=== PATIENT | male | born 1965 | race Caucasian/White ===

== ENCOUNTER 2018-06-25 11:51 | Emergency (ER) | payer BC, SELFPAY ==
[2018-06-25 12:01] VITALS: BP 159/92; PULSE 82; RESP 18; TEMP 36.7
--- NOTE | 2018-06-25 12:12 | W.ED.GENAD ---
Discharge Plan Discharge Details Chief Complaint: EyeProblem Primary Care Provider: Alberto Ruffin ED Provider: Sergio Alvarez Medical Decision Making 52-year-old male presents with 1 day of left eye injection and purulent crusting discharge. He is otherwise well-appearing and does have some medical comorbidities. It is consistent with acute bacterial conjunctivitis I will treat with a course of erythromycin ointment. Discussed with patient home management as well as return precautions prior to discharge HPI General Mode of arrival: ambulatory. Date/Time Provider Initiated Documentation: 06/25/18 12:06. Limitations to Documentation: no limitations. Information obtained by: patient. History of Present Illness 52 year old M presents to the emergency department with the chief complaint of Left eye infection, described as moderate, and is localized to the eyes and left. and it has been constant. No relieving factors improve symptom(s), No exacerbating factors reported . Patient notes no other symptoms.. HPI Narrative: Left eye crusting and discharge overnight after visiting local snf facility. No pain with movement of the eye. Minimal change to vision. No fever or headache General Stated Complaint: EyeProblem GETACHEW: 3 Review of Systems Review of Systems For systems reviewed and otherwise neg. PFSH Social History Smoking/Tobacco Use Status: Never Exam Narrative Exam Narrative: GEN: awake, alert, oriented 3. Pleasant, well groomed, interactive. HEAD: Normocephalic, atraumatic ENT: Mucous membranes moist, oropharynx unremarkable, External ear exam unremarkable EYES: PERRL, EOMI, left conjunctival injection, question newly pointing stye with surrounding mild swelling of the left upper eyelid. Visual christopher intact to confrontation NECK: Full ROM, no ELLIE, no menigismus CHEST/RESP: Nontender, clear to auscultation bilateral, no wheeze/rhonchi/rales CARDIOVASCULAR: RRR, no murmur, rub david. 2+ Rad pulse bilateral Neuro: Grossly normal neurologic exam, conversant, interactive. Psych: Speech fluent, thoughts congruent, affect normal Course Vital Signs Temperature 36.7 C 06/25/18 12:01 Pulse 82 06/25/18 12:01 Respiratory Rate 18 06/25/18 12:01 Blood Pressure 159/92 H 06/25/18 12:01 Temperature 36.7 C 06/25/18 12:01 Temperature Source Skin 06/25/18 12:01 Pulse 82 06/25/18 12:01 Respiratory Rate 18 06/25/18 12:01 Respiratory Effort 06/25/18 12:04 Blood Pressure 159/92 H 06/25/18 12:01 Blood Pressure Position Sitting 06/25/18 12:01 Oxygen Delivery Method Room Air 06/25/18 12:01 Oxygen Flow Rate 0 06/25/18 12:01
--- NOTE | 2018-06-25 12:16 | ED.GENADUL_ITS ---
Discharge Plan Discharge Details Chief Complaint: EyeProblem Primary Care Provider: Alberto Ruffin ED Provider: Sergio Alvarez Medical Decision Making 52-year-old male presents with 1 day of left eye injection and purulent crusting discharge. He is otherwise well-appearing and does have some medical comorbidities. It is consistent with acute bacterial conjunctivitis I will treat with a course of erythromycin ointment. Discussed with patient home management as well as return precautions prior to discharge HPI General Mode of arrival: ambulatory . Date/Time Provider Initiated Documentation: 06/25/18 12:06 . Limitations to Documentation: no limitations . Information obtained by: patient . History of Present Illness 52 year old M presents to the emergency department with the chief complaint of Left eye infection, described as moderate, and is localized to the eyes and left. and it has been constant. No relieving factors improve symptom(s), No exacerbating factors reported . Patient notes no other symptoms.. HPI Narrative: Left eye crusting and discharge overnight after visiting local [facility] facility. No pain with movement of the eye. Minimal change to vision. No fever or headache General Stated Complaint: EyeProblem GETACHEW: 3 Review of Systems Review of Systems For systems reviewed and otherwise neg. PFSH Social History Smoking/Tobacco Use Status: Never Exam Narrative Exam Narrative: GEN: awake, alert, oriented 3. Pleasant, well groomed, interactive. HEAD: Normocephalic, atraumatic ENT: Mucous membranes moist, oropharynx unremarkable, External ear exam unremarkable EYES: PERRL, EOMI, left conjunctival injection, question newly pointing stye with surrounding mild swelling of the left upper eyelid. Visual christopher intact to confrontation NECK: Full ROM, no ELLIE, no menigismus CHEST/RESP: Nontender, clear to auscultation bilateral, no wheeze/rhonchi/rales CARDIOVASCULAR: RRR, no murmur, rub david. 2+ Rad pulse bilateral Neuro: Grossly normal neurologic exam, conversant, interactive. Psych: Speech fluent, thoughts congruent, affect normal Course Vital Signs Temperature 36.7 C 06/25/18 12:01 Pulse 82 06/25/18 12:01 Respiratory Rate 18 06/25/18 12:01 Blood Pressure 159/92 H 06/25/18 12:01 Temperature 36.7 C 06/25/18 12:01 Temperature Source Skin 06/25/18 12:01 Pulse 82 06/25/18 12:01 Respiratory Rate 18 06/25/18 12:01 Respiratory Effort 06/25/18 12:04 Blood Pressure 159/92 H 06/25/18 12:01 Blood Pressure Position Sitting 06/25/18 12:01 Oxygen Delivery Method Room Air 06/25/18 12:01 Oxygen Flow Rate 0 06/25/18 12:01
[2018-06-25] MEDS: Erythromycin Ophth Oint 3.5 GM TUBE OS (12:33)
[2018-06-25 12:35] VITALS: BP 159/92; PULSE 82; RESP 18; TEMP 36.7; O2SAT 98
== END 2018-06-25 12:35 | disposition designated cancer center or children's hospital (05) ==
PROVIDERS: Emergency Provider Emergency Medicine
DX: H10.32 Unspecified acute conjunctivitis, left eye (principal); E11.9 Type 2 diabetes mellitus without complications
CPT/HCPCS: 99283

== ENCOUNTER 2018-10-24 11:10 | Outpatient (CLI) | payer BC, SELFPAY ==
[2018-10-24 12:16] LABS: ALT 80 U/L (12-78); AST 37 U/L (15-37); Albumin 3.8 g/dL (3.4-5.0); Alkaline Phosphatase 125 U/L (46-116); BUN 13 mg/dL (7-18); Bilirubin, Total 0.9 mg/dL (0.2-1.0); CREATININE 0.84 mg/dL (0.70-1.30); Calcium 9.2 mg/dL (8.5-10.1); Chloride 100 mmol/L (98-107); Cholesterol 204 mg/dL (50-200); Glucose 288 mg/dL (70-100); HDL Cholesterol 51 mg/dL (40-60); LDL CHOLESTEROL 122 mg/dL (<100); Potassium 4.4 mmol/L (3.5-5.1); Sodium 136 mmol/L (136-145); Total Protein 7.5 g/dL (6.4-8.2); Triglyceride 217 mg/dL (30-150)
== END 2018-10-24 11:30 ==
PROVIDERS: PCP Family Medicine; Visit Provider Family Medicine
DX: E11.9 Type 2 diabetes mellitus without complications (principal)
CPT/HCPCS: 36415; 80053; 80061; 83721

== ENCOUNTER 2019-05-22 14:32 | Outpatient (REF) | payer BC, SELFPAY ==
[2019-05-22 19:35] LABS: Microalb ug/mg Crea 286.5 ug/mg Cr
== END 2019-05-22 14:52 ==
LOC: LBN 14:32
PROVIDERS: PCP Family Medicine; Visit Provider Family Medicine
DX: E11.9 Type 2 diabetes mellitus without complications (principal)
CPT/HCPCS: 82043; 82570

== ENCOUNTER 2019-06-05 11:50 | Day surgery (SDC) | payer BC, SELFPAY ==
[2019-06-05 12:13] VITALS: BP 166/98; PULSE 84; RESP 18; TEMP 36.6; O2SAT 96
--- NOTE | 2019-06-05 14:10 | SKI_PTH ---
PATIENT: Brian Walker LOC: [facility] U#:[id number] AGE/SX: 53/M ROOM: RE06/05/[address]: Christianne Martinez : 1965 BED: DIS: 06/05/2019 SPEC #: [id number] RECD: 06/05/19 17:48 STATUS: CARLOS LEYVA #: [id number] LAURI: 06/05/19 14:[address]: Christianne Martinez DEPT: Surgical Specimen RECD BY: Ines Menjivar ENTERED: 06/05/19 17:49 SP TYPE: ROSIBEL VARELA DR: Jordan Vega DO Tissues: 1 - SKIN CYST/TAG/DEBRIDEMENT 2 - SKIN CYST/TAG/DEBRIDEMENT 3 - SKIN CYST/TAG/DEBRIDEMENT Procedures: SKIN BIOPSY LEVEL 3 Comments: [id number]
--- NOTE | 2019-06-05 14:57 | W.PM.DSUDISC ---
Discharge Plan Disposition Patient Disposition: HOME Condition: Good Discharge Details Reason For Visit: SKIN LESION / CYSTS Attending Provider: Christianne Martinez Primary Care Provider: Jordan Vega [place] Meds and New Rx's Prescriptions: New tramadol 50 mg tablet 50 mg PO Q6H PRN (Reason: pain) Qty: 7 RF: 0 ibuprofen 600 mg tablet 600 mg PO Q6H PRN (Reason: pain) Qty: 60 RF: 1 Continued glimepiride 2 mg tablet 2 mg PO DAILY Qty: 90 RF: 3 atorvastatin 40 mg tablet 40 mg PO QHS Qty: 90 RF: 3 lisinopril 5 mg tablet 5 mg PO DAILY Qty: 90 RF: 3 doxycycline hyclate 20 mg tablet 20 mg PO BID Qty: 180 RF: 3 Invokana 300 mg tablet 300 mg PO DAILY Qty: 30 RF: 3 Discharge Orders Discharge Orders: Discharge Order (Routine); Ordered 06/05/19 Ordered By: Christianne Martinez DS: Diagnosis Discharge Diagnosis (1) Epidermal cyst: Status: Acute
--- NOTE | 2019-06-05 15:11 | W.PM.DSUDISC ---
Discharge Plan Disposition Patient Disposition: HOME Condition: Good Discharge Details Reason For Visit: SKIN LESION / CYSTS Attending Provider: Christianne Martinez Primary Care Provider: Jordan Vega Home Meds and New Rx's Prescriptions: New tramadol 50 mg tablet 50 mg PO Q6H PRN (Reason: pain) Qty: 7 RF: 0 ibuprofen 600 mg tablet 600 mg PO Q6H PRN (Reason: pain) Qty: 60 RF: 1 Continued glimepiride 2 mg tablet 2 mg PO DAILY Qty: 90 RF: 3 atorvastatin 40 mg tablet 40 mg PO QHS Qty: 90 RF: 3 lisinopril 5 mg tablet 5 mg PO DAILY Qty: 90 RF: 3 doxycycline hyclate 20 mg tablet 20 mg PO BID Qty: 180 RF: 3 Invokana 300 mg tablet 300 mg PO DAILY Qty: 30 RF: 3 Discharge Instructions Additional Instructions: Caring for Your Incision You?ll need to help care for your incision after surgery and certain medical procedures. To close an incision, your healthcare provider used stitches (sutures), special strips of surgical tape called Steri-Strips, surgical messi, or surgical skin glue. Follow the tips on this sheet to help stop bleeding, speed healing, and prevent infection of your incision. Pain Control Use ice! Ice keeps the swelling down and swelling is what causes pain. Never apply ice directly to the skin. Wrap it in a towel or cloth. Apply ice 20 minutes on and 20 minutes off for pain control. Use as needed. Take tylenol 325 mg by mouth with food every 4 hours as needed for pain. Or ibuprofen 400 mg by mouth with food every 4 hours as needed for pain. Do not take tylenol if you have a history of heavy drinking , hepatits C or liver problems. Do not take ibuprofen if you have a history of stomach ulcers/problems, bleeding problem or kidney issues. Types of incision closures ? Surgical stitches (sutures) are placed by sewing the edges of an incision together with surgical thread. Sutures are either absorbable or non-absorbable. Absorbable sutures break down in the body over time. Non-absorbable sutures need to be removed. ? Home care ? Always wash your hands before touching your incision. ? Keep the incision clean, dry, and out of water, keep the incision out of water. ? Do not to pick at the scabs. Scabs help protect the wound. ? You can take a shower in 24 hours and wash the incision with soap and water. Pat dry/don?t scrub. It?s OK to wash around the incision. But don?t spray water directly on it. ? Pat stitches dry if they get wet. Don't rub. ? Check the incision site daily for pain, redness, drainage, swelling, or separation of the incision edges. ? If there is a bandage (dressing) over the incision, change this every 24 hours as instructed by your provider. Using clean hands change the dressing as directed by your healthcare provider. Always wash your hands before changing your dressing. ? Make sure any clothing that touches the incision is loose-fitting. This will prevent rubbing. If the incision is on the head, keep your child from wearing caps or other head coverings. These may rub against the incision. ? Try to avoid from rough play, contact sports, or physical activities for two weeks. This can put you at risk of opening the incision. ? Make sure you avoid doing things that could cause dirt or sweat to get in or on the incision. As your incision heals, the skin may appear pink or red. It may also feel slightly bumpy or raised. This is called a healing ridge. Over time, the color should fade and the raised skin will become less noticeable. Care for specific closures : ? Sutures or messi. Once you no longer need to keep these dry, clean the incision or wound daily, generally after the first 24 hours. First remove the bandage using clean hands. Then wash the area gently with soap and warm water. Use a wet cotton swab to loosen and remove any blood or crust that forms. After cleaning, put a thin layer of antibiotic ointment on. Then put on a new bandage. Follow-up care [place] or sutures generally need to be removed in 7-10 days. 5 days for the face. Be sure to return for suture or staple removal as directed. If dissolving stitches were used in your mouth, these will not need to be removed. They should fall out or dissolve on their own. If tape closures were used, remove them yourself when your healthcare provider tells you to if they have not fallen off on their own. When to seek medical care Call your healthcare provider right away if you have any of these: ? More pain, redness, swelling, bleeding, or foul-smelling discharge around the incision area ? Fever of 101?F (38.3?C) or higher, or as directed by your child's healthcare provider ? Shaking chills ? Vomiting or nausea that doesn?t go away ? Numbness, coldness, or tingling around the incision area, or changes in skin color ? Opening of the sutures or wound Stitches or messi come apart or fall out or surgical tape falls off before 7 days, or as directed by your healthcare provider Activity:: no strenuous activity x 2 wks Remove Dressings/Wound Care:: 24 hours Shower/Bathe:: 24 hours Diet:: As Tolerated Discharge Orders Discharge Orders: Discharge Order (Routine); Ordered 06/05/19 Ordered By: Christianne Martinez DS: Diagnosis Discharge Diagnosis (1) Epidermal cyst: Status: Acute
--- NOTE | 2019-06-05 15:16 | W.PM.OP ---
Date of service: 06/05/19 Time of Service: 15:16 Operative Note DATE OF PROCEDURE: 06/05/19 PRE-OP DIAGNOSIS: sebaceous cyst POST-OP DIAGNOSIS: same PROCEDURE: excision of cysts x 3 face 2x2cm elbow 2x2 chest 2x2cm SURGEON: Christianne Martinez ANESTHESIA: local ESTIMATED BLOOD LOSS: 5 PATHOLOGY: other COMPLICATIONS: None Patient was transported to: same day Procedure Description: dictated
[2019-06-05] MEDS: traMADol 50 MG TAB PO (15:31)
--- NOTE | 2019-06-08 16:49 | ROE_ITS ---
DATE OF PROCEDURE: June 05, 2019 PREOPERATIVE DIAGNOSIS: sebaceous cysts x3 POSTOPERATIVE DIAGNOSIS: Same. PROCEDURE: Excision thereof. SURGEON: Christianne Martinez D.O. ANESTHESIA: Local. ESTIMATED BLOOD LOSS: < 5 cc's in total. CONDITION: Patient tolerated the procedure well without complication. INDICATION FOR PROCEDURE: Mr. Walker is a 53-year-old male seen at the request of his primary care physician and is here today for cyst removal. He has three cysts that he wants removed today - one on his face at the lateral angle of the right eye that is 2x2 cm; one on his left elbow that is 2x2 inches; and one on his mid chest that is 2x2 cm- and this lesion is recurrent. None of these are actively infected. He has had a history of sebaceous cysts in the past. None of these are suspicious for malignancy. They are marked in preop and informed consent was obtained explaining risks and benefits of the procedure, including but not limited to bleeding, infection, scarring and recurrence. I did offer him the option of going to see Plastic Surgery for having the one removed by the eye, but he declines at this time. PROCEDURE: The patient was brought back to the procedure room and placed in the supine position. A time-out is performed. The one near the eye is attended to first and is prepped and draped in the usual sterile fashion using a Chlorhexidine scrub solution, being careful not to get the solution in his eye. The area is infiltrated with 5 cc's of 1% Lidocaine plain. A skin incision is made with a #15 blade to match the contours of his skin. The lesion is dissected out completely and it does appear to be a sebaceous cyst. It does have a thick rind around it. All the capsule is removed. The wound is then irrigated and is closed with two stitches of #4-0 Nylon. The one on the elbow was then attended to next. It is infiltrated with 30 cc's lidocaine. . An inch and a half incision is then made over the elbow. This is a 2 to 3 inch lesion and this is again dissected out completely, including capsule. It is irrigated and ensured that all the capsule is removed. It is closed in two layers, the first with #3-0 Vicryl and the second layer with #3-0 Prolene. Compression dressing is applied. The lesion on the chest is attended to next. He has had this in the past with infection; it is not currently infected. It is prepped and draped with Chlorhexidine. It is infiltrated with 10 cc's of Lidocaine. The old scar tissue and the cyst are excised in total and it is closed with three stitches of #3-0 Prolene and sterile dressings are applied. The patient tolerated the procedure well without complication and transferred to recovery room in stable condition and will be discharged home. He is given instructions on wound care, activity and warning signs and prescription for pain medication. Please see his discharge instructions.
== END 2019-06-05 15:37 | disposition home or self-care (01) ==
PROVIDERS: PCP Family Medicine; Visit Provider Surgery
PROC: (CPT 11442; principal; 2019-06-05 13:00)
DX: L72.8 Other follicular cysts of the skin and subcutaneous tissue (principal)
CPT/HCPCS: 11442; 11402 ×2; 12031; 88304

== ENCOUNTER 2019-07-18 23:05 | Emergency (ER) | payer BC, SELFPAY ==
[2019-07-18 23:12] VITALS: BP 151/87; PULSE 94; RESP 20; TEMP 36.6; O2SAT 97
[2019-07-18] MEDS: Budesonide/Formoterol 160/4.5 6 GM 60 PUFF INH IH (23:14)
--- NOTE | 2019-07-18 23:17 | DI.RAD_ITS ---
EXAM: XR CHEST 2V PA LATERAL XR CHEST 2V PA LATERAL CLINICAL HISTORY: cough, r/o pneumonia cough, r/o pneumonia TECHNIQUE: 2D digital imaging was performed. COMPARISON: No exams were available for comparison FINDINGS: The heart is not enlarged. The lungs are clear and well expanded. No pleural effusion seen. Mediastin al contours appear intact. IMPRESSION: Normal chest
--- NOTE | 2019-07-18 23:19 | ED.GENADUL_ITS ---
Discharge Plan Disposition Patient Disposition: HOME Condition: Good Discharge Details Chief Complaint: SOB Clinical Impression: Bronchitis Primary Care Provider: Jordan Vega ED Provider: Tawanda Bowman Home Meds and New Rx's Prescriptions: New azithromycin 250 mg tablet See Rx Instructions .ROUTE .COMPLEX Qty: 6 RF: 0 prednisone 50 MG tablet 50 mg PO DAILY Qty: 5 RF: 0 No Action glimepiride 2 mg tablet 2 mg PO DAILY Qty: 90 RF: 3 atorvastatin 40 mg tablet 40 mg PO QHS Qty: 90 RF: 3 lisinopril 5 mg tablet 5 mg PO DAILY Qty: 90 RF: 3 doxycycline hyclate 20 mg tablet 20 mg PO BID Qty: 180 RF: 3 ibuprofen 600 mg tablet 600 mg PO Q6H PRN (Reason: pain) Qty: 60 RF: 1 Farxiga 10 mg Tablet 10 mg PO DAILY RF: 0 Discharge Instructions Instructions: Acute Bronchitis (ED) Additional Instructions: At this time your x-rays negative for pneumonia. Your signs are concerning for bronchitis. Please take the Symbicort inhaler, 2 puffs every 12 hours as directed. I suspect that you have a notable improvement with this. However if you do not have any significant improvement over the next 2 to 3 days, I would then recommend start taking the oral steroid and the antibiotic. When you are doing this make sure to monitor your sugars very closely. If you notice any worsening of your symptoms, or any new symptoms such as vomiting, diarrhea, fever, chills, shortness of breath, chest pain, numbness, weakness, or fainting , please return immediately to the emergency department for reevaluation. Please follow up with your primary care provider as soon as possible for reassessment and reevaluation. As always, it was a pleasure participating in your medical care today. Referrals: Jordan Vega DO [Primary Care Provider] - Medical Decision Making This is a 53-year-old male with a past medical history of rosacea on chronic 20 mg of doxycycline daily, high cholesterol, type 2 diabetes, hypertension, who presents today for evaluation of cough for the last week. It is productive white sputum. No hemoptysis. He denies any weight gain, in fact he does admit to mild weight loss. He denies any fever or chills. He denies any concerning red flags for chest pain, chest tightness, chest heaviness. He denies any recent long trips, travel or surgery. He denies any PE red flags. Physical exam demonstrates no significant concerning lung sounds, no other significant abnormalities. Patient is on lisinopril and has been on this chronically. I feel it unlikely that this is the causative etiology of his symptoms. Feel he would likely suffering from current bronchitis. We will get an x-ray to rule out pneumonia. We will give 2 breathing treatments, and reassess. His sugars have been running high for the last few days, and so we will hold off on steroids at this time. 12:39 AM Chest x-ray results are negative for acute process peaked. EKG unremarkable. There is an old Q wave in lead III, however EKG from 2007 demonstrates identical findings. Patient feels much better after breathing treatments. With no clinical evidence of pneumonia I do not feel that antibiotics are indicated at this time. We will give Symbicort with a spacer to go home with. We will give him a prescription for steroids and antibiotics but my recommendation to the patient is that he holds off for the next 48 to 72 hours. If he improves with the inhaler at home, I feel that this will be sufficient and he will not need the additional medications. Additionally am hesitant about steroids secondary to his poorly controlled diabetes. With no signs of respiratory distress or compromise, I feel he can be safely discharged home. Diagnosis bronchitis. I have extensively reviewed the treatment plan and discharge instructions with the patient. I have addressed all patient concerns at this time. The patient was made aware of what symptoms to monitor for that would warrant a return to the emergency department. Discussed the plan with the patient, they demonstrate verbal understanding and agreement with our assessment and plan at this time. EKG 23: 25 Rate 95, intervals normal, sinus rhythm, Q wave in lead III, no significant ST elevations or depressions, no significant T wave inversions. Review of prior EKG from demonstrates equivalent findings. FINDINGS: Lungs: Unremarkable. No consolidation. Pleural space: Unremarkable. No pleural effusion. No pneumothorax. Heart/Mediastinum: Unremarkable. No cardiomegaly. Bones/joints: Unremarkable. IMPRESSION: No acute findings. Thank you for allowing us to participate in the care of your patient. Dictated and Authenticated by: Jordan Boone DO 07/19/2019 12:03 AM Eastern Time ([place] & [place]) HPI General Date/Time Provider Initiated Documentation: 07/18/19 23:09 . HPI Narrative: This is a 53-year-old male with a past medical history of rosacea on chronic doxycycline, diabetes, chronic hepatic steatosis, hypertension, who presents today for evaluation of cough. States that for the last week he has had a mild cough, he has productive white sputum, over the last few days his cough is continued and slightly worsened. On some episodes his cough is so severe that he gets slightly lightheaded. He denies any syncope. He denies any chest pain, chest heaviness, chest tightness. He has not taken any additional medications for this. He did try to use an inhaler at home once from a family member but was unable to. He denies any fever or chills. He denies any nausea vomiting or diarrhea. He has no other complaints at this time. He does not smoke. He denies any history of cardiac disease. Related Data Home Medications Medication Instructions Recorded Confirmed doxycycline hyclate 20 mg tablet 20 mg PO BID #180 tab 10/23/18 07/18/19 atorvastatin 40 mg tablet 40 mg PO QHS #90 tab 12/12/18 07/18/19 lisinopril 5 mg tablet 5 mg PO DAILY #90 tab 12/12/18 07/18/19 glimepiride 2 mg tablet 2 mg PO DAILY #90 tab 05/22/19 07/18/19 ibuprofen 600 mg PO Q6H PRN #60 tab 06/05/19 07/18/19 dapagliflozin [Farxiga] 10 mg PO DAILY 07/18/19 07/18/19 azithromycin See Rx Instructions .ROUTE 07/19/19 .COMPLEX #6 tab prednisone 50 mg PO DAILY #5 tab 07/19/19 Previous Rx's Medication Instructions Recorded doxycycline hyclate 20 mg tablet 20 mg PO BID #180 tab 10/23/18 atorvastatin 40 mg tablet 40 mg PO QHS #90 tab 12/12/18 lisinopril 5 mg tablet 5 mg PO DAILY #90 tab 12/12/18 glimepiride 2 mg tablet 2 mg PO DAILY #90 tab 05/22/19 ibuprofen 600 mg PO Q6H PRN #60 tab 06/05/19 azithromycin See Rx Instructions .ROUTE 07/19/19 .COMPLEX #6 tab prednisone 50 mg PO DAILY #5 tab 07/19/19 Allergies Allergy/AdvReac Type Severity Reaction Status Date / Time Penicillins Allergy Severe anaphylaxis Verified 06/17/19 09:09 General Stated Complaint: SOB GETACHEW: 3 Review of Systems Review of Systems ROS Unobtainable: All systems reviewed & are unremarkable except as noted in HPI and below PFSH Social History Smoking/Tobacco Use Status: Never Alcohol Intake: former Drug use: Never Substance use type: does not use Adopted: No Household members: spouse 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 3.ENT: Atraumatic external nose and ears. Moist MM. Neck: Symmetric, trachea midline, No thyromegaly. Posterior oropharynx demonstrates no tonsillar exudate or tonsillar enlargement. No evidence of airway compromise. 4.CVS: +S1/S2, No murmurs or gallops. Peripheral pulses 2+ and equal in all extremities. Brisk capillary refill in all extremities. 5.RESP: Unlabored respiratory effort. Lungs are clear to auscultation, no significant wheezes rales or rhonchi. Minimally reduced breath sounds throughout though. 6.GI: Soft, Nontender/Nondistended, No hepatosplenomegaly. No guarding or rebound. 7.MSK: Normocephalic/Atraumatic, Extremities w/o deformity or ttp No cyanosis or clubbing, Normal movement of all extremities. No swelling or pitting edema. No calf tenderness. 8.Skin: Warm, Dry. No rashes or lesions. 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 Sensation grossly intact, no focal neurologic deficits. 10.Psych: (AAO) x3. Appropriate mood and affect Course Vital Signs Vital signs: Vital Signs Temperature 36.6 C 07/18/19 23:12 Pulse 94 H 07/18/19 23:12 Respiratory Rate 20 07/18/19 23:12 Blood Pressure 151/87 H 07/18/19 23:12 Pulse Oximetry 97 07/18/19 23:12 Temperature 36.6 C 07/18/19 23:12 Temperature Source Tympanic 07/18/19 23:12 Pulse 94 H 07/18/19 23:12 Respiratory Rate 20 07/18/19 23:12 Blood Pressure 151/87 H 07/18/19 23:12 Pulse Oximetry 97 07/18/19 23:12 Oxygen Delivery Method Room Air 07/18/19 23:12 Oxygen Flow Rate 0 07/18/19 23:12
[2019-07-18 23:30] VITALS: RESP 20
[2019-07-18] MEDS: Albuterol/Ipratropium 3 ML UPD VIAL 6 ML UPD (23:34)
--- NOTE | 2019-07-19 00:03 | DI.VRAD_ITS ---
PROCEDURE INFORMATION: Exam: XR Chest, 2 Views Exam date and time: 07/18/2019 11:51 PM Clinical history: 53 years old, male; Cough and shortness of breath; Patient HX: Cough; Per PT: Been going on for about week; Additional info: R/O pneumonia TECHNIQUE: Imaging protocol: XR of the chest Views: 2 views. COMPARISON: No relevant prior studies available. FINDINGS: Lungs: Unremarkable. No consolidation. Pleural space: Unremarkable. No pleural effusion. No pneumothorax. Heart/Mediastinum: Unremarkable. No cardiomegaly. Bones/joints: Unremarkable. IMPRESSION: No acute findings. Dictated and Authenticated by: Jordan Boone MD. Ordering:JUDY Neff MD
[2019-07-19] MEDS: Albuterol/Ipratropium 3 ML UPD VIAL UPD (00:20)
[2019-07-19 00:52] VITALS: BP 151/87; PULSE 110; RESP 18; O2SAT 98
== END 2019-07-19 00:55 | disposition home or self-care (01) ==
PROVIDERS: Emergency Provider Student in an Organized Health Care Education/Training Program; PCP Family Medicine
DX: J20.9 Acute bronchitis, unspecified (principal); I10 Essential (primary) hypertension; E11.9 Type 2 diabetes mellitus without complications
CPT/HCPCS: 93005; 94640; 99284; 71046; 93010; J7620

== ENCOUNTER 2019-10-11 17:39 | Emergency (ER) | payer BC, SELFPAY ==
[2019-10-11 17:43] VITALS: BP 145/83; PULSE 104; RESP 18; TEMP 36.8; O2SAT 98
--- NOTE | 2019-10-11 17:49 | W.ED.GENAD ---
Discharge Plan Disposition Patient Disposition: HOME Condition: Good Discharge Details Chief Complaint: FacialProb Clinical Impression: Otitis media, Acute bacterial conjunctivitis Primary Care Provider: Jordan Vega ED Provider: Tawanda Bowman Home Meds and New Rx's Prescriptions: New azithromycin 250 mg tablet See Rx Instructions .ROUTE .COMPLEX Qty: 6 RF: 0 loratadine 10 mg capsule 10 mg PO DAILY Qty: 30 RF: 0 fluticasone propionate [Flonase Allergy Relief] 50 mcg/actuation spray,suspension 1 spray SAMY BID Qty: 9.9 RF: 0 No Action glimepiride 2 mg tablet 2 mg PO DAILY Qty: 90 RF: 3 atorvastatin 40 mg tablet 40 mg PO QHS Qty: 90 RF: 3 lisinopril 5 mg tablet 5 mg PO DAILY Qty: 90 RF: 3 doxycycline hyclate 20 mg tablet 20 mg PO BID Qty: 180 RF: 3 ibuprofen 600 mg tablet 600 mg PO Q6H PRN (Reason: pain) Qty: 60 RF: 1 Farxiga 10 mg Tablet 10 mg PO DAILY RF: 0 prednisone 50 MG tablet 50 mg PO DAILY Qty: 5 RF: 0 Discharge Instructions Instructions: Otitis Media (ED), Conjunctivitis (ED) Additional Instructions: At this time you have notable bilateral ear infection as well as notable congestion sinusitis and conjunctivitis. Please use the erythromycin ointment in each eye 3 times daily for 7 days. Please take the azithromycin as directed for the infection. To help with the drainage please take the loratadine 10 mg daily as directed. You can also take 1 or 2 25 mg Benadryl throughout the day for added relief. Please use the fluticasone spray your nose 1 spray to each nostril twice daily. If you notice any worsening of your symptoms, or any new symptoms such as vomiting, diarrhea, fever, chills, shortness of breath, chest pain, numbness, weakness, or fainting , please return immediately to the emergency department for reevaluation. Please follow up with your primary care provider as soon as possible for reassessment and reevaluation. As always, it was a pleasure participating in your medical care today. Referrals: Jordan Vega DO [Primary Care Provider] - Medical Decision Making This is a pleasant 53-year-old male who is a history of chronic doxycycline use secondary to his rosacea who presents today for evaluation of congestion, left ear pain, mild cough. Physical exam demonstrates normal lung sounds, afebrile. Initial heart rate was 104, however on auscultation heart rate was 75. Physical exam demonstrates notable left-sided otitis media, no mastoid tenderness. Small amount of effusion on the right side. Notable frontal sinus congestion. Signs and symptoms are inconsistent with pneumonia and clinically consistent with otitis media with sinusitis and congestion. We will give the patient a new inhaler as he just ran out, prescribed loratadine, azithromycin secondary to his notable penicillin allergy, Flonase. We will also give her the rice and ointment for his eyes bilaterally to help with the suspected mild bacterial conjunctivitis. He is not a contact lens wear. Discussed red flags which to return. I have extensively reviewed the treatment plan and discharge instructions with the patient. I have addressed all patient concerns at this time. The patient was made aware of what symptoms to monitor for that would warrant a return to the emergency department. Discussed the plan with the patient, they demonstrate verbal understanding and agreement with our assessment and plan at this time. HPI General Date/Time Provider Initiated Documentation: 10/11/19 17:40. HPI Narrative: This is a 53-year-old male with a past medical history of hypertension, high cholesterol, rosacea on chronic doxycycline who presents today for evaluation of facial congestion, left ear pain, mild cough with mild productive sputum. He has been using the inhaler that was previously prescribed and this does notably help his cough. He denies any fever chills or neck pain. He denies any vomiting or diarrhea. He denies any chest pain or shortness of breath. He also does admit to mild crusting over his left and right eye that are been going on for last 1 4 hours. He denies any vision changes after this. No other complaints at this time. No other modifying factors. Related Data Home Medications Medication Instructions Recorded Confirmed doxycycline hyclate 20 mg tablet 20 mg PO BID #180 tab 10/23/18 10/11/19 atorvastatin 40 mg tablet 40 mg PO QHS #90 tab 12/12/18 10/11/19 lisinopril 5 mg tablet 5 mg PO DAILY #90 tab 12/12/18 10/11/19 glimepiride 2 mg tablet 2 mg PO DAILY #90 tab 05/22/19 10/11/19 ibuprofen 600 mg PO Q6H PRN #60 tab 06/05/19 10/11/19 dapagliflozin [Farxiga] 10 mg PO DAILY 07/18/19 10/11/19 prednisone 50 mg PO DAILY #5 tab 07/19/19 10/11/19 azithromycin See Rx Instructions .ROUTE 10/11/19 .COMPLEX #6 tab fluticasone propionate [Flonase 1 spray SAMY BID #9.9 ml 10/11/19 Allergy Relief] loratadine 10 mg PO DAILY #30 cap 10/11/19 Previous Rx's Medication Instructions Recorded doxycycline hyclate 20 mg tablet 20 mg PO BID #180 tab 10/23/18 atorvastatin 40 mg tablet 40 mg PO QHS #90 tab 12/12/18 lisinopril 5 mg tablet 5 mg PO DAILY #90 tab 12/12/18 glimepiride 2 mg tablet 2 mg PO DAILY #90 tab 05/22/19 ibuprofen 600 mg PO Q6H PRN #60 tab 06/05/19 prednisone 50 mg PO DAILY #5 tab 07/19/19 azithromycin See Rx Instructions .ROUTE 10/11/19 .COMPLEX #6 tab fluticasone propionate [Flonase 1 spray SAMY BID #9.9 ml 10/11/19 Allergy Relief] loratadine 10 mg PO DAILY #30 cap 10/11/19 Allergies Allergy/AdvReac Type Severity Reaction Status Date / Time Penicillins Allergy Severe anaphylaxis Verified 10/11/19 17:48 General Stated Complaint: FacialProb GETACHEW: 4 Review of Systems All systems reviewed & are unremarkable except as noted in HPI and below PFSH Social History Smoking/Tobacco Use Status: Never Alcohol Intake: former Drug use: Never Substance use type: does not use Adopted: No Household members: spouse 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 3.ENT: Atraumatic external nose and ears. Moist MM. Neck: Symmetric, trachea midline, No thyromegaly. Left ear demonstrates notable bulging with purulent fluid. Right ear also demonstrates bulging with a small amount of purulent fluid at the base. No evidence of rupture bilaterally. Mild pressure over the left frontal and maxillary sinuses. Posterior oropharynx is normal and unremarkable. Patient demonstrates good movement of cervical neck. There is no nuchal rigidity, no nuchal tenderness. Patient is able to flex the neck without any difficulty or significant pain. Negative Kernig's and Brudzinski sign. Bilateral eyes show no evidence of significant drainage or crusting at this time. 4.CVS: +S1/S2, No murmurs or gallops. Peripheral pulses 2+ and equal in all extremities. Brisk capillary refill in all extremities. 5.RESP: Unlabored respiratory effort. Clear to auscultation bilaterally. No wheezes rales or rhonchi 6.GI: Soft, Nontender/Nondistended, No hepatosplenomegaly. No guarding or rebound. 7.MSK: Normocephalic/Atraumatic, Extremities w/o deformity or ttp No cyanosis or clubbing, Normal movement of all extremities 8.Skin: Warm, Dry. No rashes or lesions. 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 Sensation grossly intact, no focal neurologic deficits. 10.Psych: (AAO) x3. Appropriate mood and affect Course Vital Signs Vital signs: Vital Signs Temperature 36.8 C 10/11/19 17:43 Pulse 104 H 10/11/19 17:43 Respiratory Rate 18 10/11/19 17:43 Blood Pressure 145/83 H 10/11/19 17:43 Pulse Oximetry 98 10/11/19 17:43 Temperature 36.8 C 10/11/19 17:43 Temperature Source Skin 10/11/19 17:43 Pulse 104 H 10/11/19 17:43 Respiratory Rate 18 10/11/19 17:43 Blood Pressure 145/83 H 10/11/19 17:43 Blood Pressure Position Sitting 10/11/19 17:43 Pulse Oximetry 98 10/11/19 17:43 Oxygen Delivery Method Room Air 10/11/19 17:43 Oxygen Flow Rate 0 10/11/19 17:43 Pain Level 0 10/11/19 17:43
[2019-10-11] MEDS: Albuterol HFA 8 GM 60 PUFF INH IH (18:02)
[2019-10-11] MEDS: Erythromycin Ophth Oint 3.5 GM TUBE OU (18:02)
== END 2019-10-11 17:45 | disposition home or self-care (01) ==
PROVIDERS: Emergency Provider Student in an Organized Health Care Education/Training Program; PCP Family Medicine
DX: H66.92 Otitis media, unspecified, left ear (principal); H10.33 Unspecified acute conjunctivitis, bilateral; I10 Essential (primary) hypertension
CPT/HCPCS: 99283

== ENCOUNTER 2022-02-24 14:22 | Emergency (ER) | payer BC, SELFPAY ==
[2022-02-24 14:38] VITALS: BP 145/86; PULSE 96; RESP 16; TEMP 37.1; O2SAT 96
--- NOTE | 2022-02-24 15:00 | DI.RAD_ITS ---
Exam(s) XR PORTABLE CHEST AP EXAM: XR PORTABLE CHEST AP CLINICAL HISTORY: cough, shortness of breath TECHNIQUE: 2D digital imaging was performed of the chest. One image was obtained. An AP view was ob tained. COMPARISON: CR,XR XR CHEST 2V PA LATERAL from 07/18/2019 FINDINGS: MEDIASTINUM: Normal. HEART: Normal. PULMONARY VASCULATURE: Normal. LUNGS: Clear. PLEURAL SPACE: No pleural effusion or pneumothorax. BONE:Within normal limits for the patient's age. OTHER FINDINGS:Normal. IMPRESSION: No acute pulmonary findings. DATA REPOSITORY: RADIATION DOSE DELIVERED:
--- NOTE | 2022-02-24 15:31 | DI.VRAD_ITS ---
PROCEDURE INFORMATION: Exam: XR Chest Exam date and time: 02/24/2022 3:10 PM Age: 56 years old Clinical indication: Other: Cough, shortness of breath TECHNIQUE: Imaging protocol: XR of the chest. Views: 1 view. Other technique: Portable exam. COMPARISON: CR XR CHEST 2V PA LATERAL 07/18/2019 11:50 PM FINDINGS: Lungs: Unremarkable. No consolidation. Pleural spaces: Unremarkable. No pleural effusion. No pneumothorax. Heart/Mediastinum: Heart size upper limits of normal. Bones/joints: Unremarkable. IMPRESSION: No evidence for acute abnormality in the chest. Dictated and Authenticated by: Velma Jack MD. Ordering:ODETTE Chacon MD
--- NOTE | 2022-02-24 15:36 | W.ED.GENAD ---
Discharge Plan Disposition Patient Disposition: HOME Condition: Stable Discharge Details Clinical Impression: Bronchitis Primary Care Provider: Jordan Vega ED Provider: Ines Mosher Home Meds and New Rx's Prescriptions: New dexamethasone [Decadron] 6 mg tablet 6 mg PO DAILY Qty: 1 0RF Rx Instructions: one time dose codeine-guaifenesin 7.5-225 mg/5 mL liquid 10 ml PO ONCE Qty: 473 0RF Rx Instructions: every 6 hours as needed for cough Continued atorvastatin 40 mg tablet 40 mg PO QHS Qty: 90 3RF fluticasone propionate [Flonase Allergy Relief] 50 mcg/actuation spray,suspension 1 spray SAMY BID Qty: 9.9 6RF Rx Instructions: administer into each nostril metformin 750 mg tablet extended release 24 hr 750 mg PO DAILY Qty: 90 0RF lisinopril 5 mg tablet 5 mg PO DAILY Qty: 90 3RF doxycycline hyclate 20 mg tablet 20 mg PO BID Qty: 180 3RF polyvinyl alcohol [Artificial Tears (polyvin alc)] 1.4 % drops 2 drp ophthalmic (eye) BID-QID PRN (Reason: irritated, dry eye(s)) Qty: 15 1RF Rx Instructions: As needed to soothe eye while treating for blepheritis (DME) Saline Solution Solution See Rx Instructions .ROUTE .MEDSUPPLY Qty: 118 1RF Rx Instructions: As directed loratadine 10 mg capsule 10 mg PO DAILY Qty: 90 0RF glimepiride 2 mg tablet 2 mg PO DAILY Qty: 90 3RF Farxiga 10 mg tablet 10 mg PO DAILY Qty: 90 3RF ibuprofen 600 mg tablet 600 mg PO Q6H PRN (Reason: pain) Qty: 60 1RF Discharge Instructions Instructions: Acute Bronchitis (ED) Additional Instructions: Take single dose of steroid You may take Robitussin-AC at night as needed for cough this medication is addictive and can make you constipated, he should not drive for 8 hours after taking Please follow-up with your primary care physician on Saturday with persistent symptoms Increase fluid hydration Take Mucinex daily Warm tea at night can help resolve your mucus Discharge Data Discharge Date/Time-TO BE ENTERED AT DEPARTURE: 02/24/22 16:00 Medical Decision Making Patient appears well, chest x-ray does not show evidence of acute abnormality per radiology interpretation and my review Patient was stable vitals Given a single dose of Decadron, albuterol, and cough suppressants. Risk of addiction discussed and patient expressed understanding Patient discharged home in stable condition with stable vital Return precautions discussed patient Medical Records Medical records reviewed: Yes I reviewed the patient's medical records. Lab Data Lab results reviewed: Yes I reviewed the patient's lab results. HPI General Date/Time Provider Initiated Documentation: 02/24/22 14:49. HPI Narrative: This 56-year-old male presents with report of productive cough since Saturday. He is having reported posttussive emesis. He states ears feel plugged. He states he had a negative COVID antigen test yesterday. He was sent in by his doctor secondary to persistent symptoms. He denies any history of asthma or COPD. He does not smoke. He denies any shortness of breath. Denies fever or chills. Denies any calf pain or swelling. Denies any pleuritic chest pain. Related Data Home Medications Medication Instructions Recorded Confirmed ibuprofen 600 mg tablet 600 mg PO Q6H PRN pain #60 tabs 06/05/19 02/24/22 loratadine 10 mg capsule 10 mg PO DAILY #90 tab-caps 12/11/19 02/24/22 atorvastatin 40 mg tablet 40 mg PO QHS #90 tabs 04/28/20 02/24/22 fluticasone propionate 50 1 spray intranasal BID #9.9 mL 04/28/20 02/24/22 mcg/actuation nasal spray,suspension (Flonase Allergy Relief) polyvinyl alcohol 1.4 % eye drops 2 drp ophthalmic (eye) BID-QID PRN 10/20/21 02/24/22 (Artificial Tears (polyvinyl irritated, dry eye(s) #15 mL alcohol)) soft lens rinse,store solution #118 mL 10/20/21 02/24/22 (Saline Solution) dapagliflozin 10 mg tablet 10 mg PO DAILY #90 tabs 12/25/21 02/24/22 (Farxiga) glimepiride 2 mg tablet 2 mg PO DAILY #90 tabs 12/25/21 02/24/22 doxycycline hyclate 20 mg tablet 20 mg PO BID #180 tabs 01/15/22 02/24/22 lisinopril 5 mg tablet 5 mg PO DAILY #90 tabs 01/15/22 02/24/22 metformin 750 mg tablet,extended 750 mg PO DAILY #90 tabs 01/15/22 02/24/22 release 24 hr codeine 7.5 mg-guaifenesin 225 10 ml PO ONCE #473 mL 02/24/22 mg/5 mL oral liquid dexamethasone 6 mg tablet 6 mg PO DAILY #1 tab 02/24/22 (Decadron) Previous Rx's Medication Instructions Recorded ibuprofen 600 mg tablet 600 mg PO Q6H PRN pain #60 tabs 06/05/19 loratadine 10 mg capsule 10 mg PO DAILY #90 tab-caps 12/11/19 atorvastatin 40 mg tablet 40 mg PO QHS #90 tabs 04/28/20 fluticasone propionate 50 1 spray intranasal BID #9.9 mL 04/28/20 mcg/actuation nasal spray,suspension (Flonase Allergy Relief) polyvinyl alcohol 1.4 % eye drops 2 drp ophthalmic (eye) BID-QID PRN 10/20/21 (Artificial Tears (polyvinyl irritated, dry eye(s) #15 mL alcohol)) soft lens rinse,store solution #118 mL 10/20/21 (Saline Solution) dapagliflozin 10 mg tablet 10 mg PO DAILY #90 tabs 12/25/21 (Farxiga) glimepiride 2 mg tablet 2 mg PO DAILY #90 tabs 12/25/21 doxycycline hyclate 20 mg tablet 20 mg PO BID #180 tabs 01/15/22 lisinopril 5 mg tablet 5 mg PO DAILY #90 tabs 01/15/22 metformin 750 mg tablet,extended 750 mg PO DAILY #90 tabs 01/15/22 release 24 hr codeine 7.5 mg-guaifenesin 225 10 ml PO ONCE #473 mL 02/24/22 mg/5 mL oral liquid dexamethasone 6 mg tablet 6 mg PO DAILY #1 tab 02/24/22 (Decadron) Allergies Allergy/AdvReac Type Severity Reaction Status Date / Time Penicillins Allergy Severe anaphylaxis Verified 02/24/22 14:41 metformin AdvReac Intermediate GI issues Verified 02/24/22 14:41 General Stated Complaint: RespSymp GETACHEW: 4 Review of Systems All systems reviewed & are unremarkable except as noted in HPI and below PFSH All Active Problems (Updated 02/24/22 @ 15:37 by RAGHAVENDRA Blanca) Bronchitis (Acute) Acute blepharitis (Acute) Hx of chronic dermatitis (Acute) Cystic acne? Xeroderma? Hx with Dr. Naranjo. Swelling of eye, right (Acute) Grief (Chronic) Mo in July 2021 (he admits to some self-neglect in terms of health) Epidermal cyst (Acute) Hypertension (Chronic) Hyperlipidemia associated with type 2 diabetes mellitus (Chronic) Rosacea (Chronic) Hepatic steatosis (Chronic) Type II diabetes mellitus (Chronic) Medical History (Updated 02/24/22 @ 15:37 by RAGHAVENDRA Blanca) Hepatomegaly Rosacea Sebaceous cyst Social History Smoking/Tobacco Use Status: Never Smoking risk assessment performed?: Yes Alcohol Intake: former Drug use: Never Substance use type: does not use Adopted: No Household members: spouse 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., [place] [employer] Pets and animals: No What is your relationship status?: Panel score (0-1 are the most socially isolated patients): 1 What type of physical activity do you participate in: none Seatbelt use: never Drive intox or ride w/intox taxicab driver: No Do you feel safe at home: Yes Do you feel safe in your relationship?: Yes Exam Const General: cooperative, comfortable and no acute distress HENMT Other: Boggy nasal mucosa Resp Effort & Inspection: normal respiratory effort Auscultation: clear to auscultation bilaterally Cardio Rate: regular rate Rhythm: regular rhythm Skin General skin exam: no rashes or lesions noted Neuro General: patient alert and patient oriented x3 Course Vital Signs Vital signs: Vital Signs Temperature 37.1 C 02/24/22 14:38 Pulse 96 H 02/24/22 14:38 Respiratory Rate 16 02/24/22 14:38 Blood Pressure 145/86 H 02/24/22 14:38 Pulse Oximetry 96 02/24/22 14:38 Temperature 37.1 C 02/24/22 14:38 Temperature Source Oral 02/24/22 14:38 Pulse 96 H 02/24/22 14:38 Respiratory Rate 16 02/24/22 14:38 Respiratory Effort 02/24/22 14:38 Blood Pressure 145/86 H 02/24/22 14:38 Blood Pressure Position Sitting 02/24/22 14:38 Pulse Oximetry 96 02/24/22 14:38 Oxygen Delivery Method Room Air 02/24/22 14:38 Oxygen Flow Rate 0 02/24/22 14:38 Pain Level 1 02/24/22 14:38
[2022-02-24 15:56] VITALS: BP 145/86; PULSE 96; RESP 16; TEMP 37.1; O2SAT 96
== END 2022-02-24 16:00 | disposition home or self-care (01) ==
PROVIDERS: Emergency Provider Physician Assistant; PCP Family Medicine
DX: J20.9 Acute bronchitis, unspecified (principal); R06.02 Shortness of breath
CPT/HCPCS: 99283; 71045

== ENCOUNTER 2022-06-17 11:40 | Emergency (ER) | payer BC, SELFPAY ==
--- NOTE | 2022-06-17 11:45 | DI.RAD_ITS ---
Exam(s) XR CHEST 2V PA LATERAL EXAM: XR CHEST 2V PA LATERAL CLINICAL HISTORY: cough, r/o acute disease. TECHNIQUE: 2D digital imaging was performed. COMPARISON: CR,XR XR PORTABLE CHEST AP from 02/24/2022 FINDINGS: 2 views: Heart size is normal. The mediastinum is not widened. Lungs are clear. No infiltrates nor pleural effusions. IMPRESSION: No acute pulmonary findings.No significant change compared 02/24/2022. DATA REPOSITORY: RADIATION DOSE DELIVERED:
[2022-06-17 11:49] VITALS: BP 143/87; PULSE 83; RESP 18; TEMP 36.8; O2SAT 98
--- NOTE | 2022-06-17 12:33 | ED.GENADUL_ITS ---
Discharge Plan Disposition Patient Disposition: HOME Condition: Stable Discharge Details Clinical Impression: Pneumonia Primary Care Provider: Jordan Vega ED Provider: Melissa Mc Home Meds and New Rx's Prescriptions: New benzonatate 100 mg capsule 100 mg PO TID PRN (Reason: cough) Qty: 14 0RF albuterol sulfate 90 mcg/actuation HFA aerosol inhaler 2 puff inhalation Q6H PRN (Reason: shortness of breath or wheezing) Qty: 8.5 0RF levofloxacin 750 mg tablet 750 mg PO DAILY 5 Days Qty: 5 0RF Continued atorvastatin 40 mg tablet 40 mg PO QHS Qty: 90 3RF fluticasone propionate [Flonase Allergy Relief] 50 mcg/actuation spray,suspension 1 spray SAMY BID Qty: 9.9 6RF Rx Instructions: administer into each nostril metformin 750 mg tablet extended release 24 hr 750 mg PO DAILY Qty: 90 0RF lisinopril 5 mg tablet 5 mg PO DAILY Qty: 90 3RF polyvinyl alcohol [Artificial Tears (polyvin alc)] 1.4 % drops 2 drp ophthalmic (eye) BID-QID PRN (Reason: irritated, dry eye(s)) Qty: 15 1RF Rx Instructions: As needed to soothe eye while treating for blepheritis (DME) Saline Solution Solution See Rx Instructions .ROUTE .MEDSUPPLY Qty: 118 1RF Rx Instructions: As directed loratadine 10 mg capsule 10 mg PO DAILY Qty: 90 0RF glimepiride 2 mg tablet 2 mg PO DAILY Qty: 90 3RF Farxiga 10 mg tablet 10 mg PO DAILY Qty: 90 3RF ibuprofen 600 mg tablet 600 mg PO Q6H PRN (Reason: pain) Qty: 60 1RF doxycycline hyclate 20 mg tablet 1 tab PO BID Label Comments: TAKE ONE TABLET BY MOUTH TWICE A DAY Discontinued doxycycline hyclate 20 mg tablet 20 mg PO BID Qty: 180 3RF dexamethasone [Decadron] 6 mg tablet 6 mg PO DAILY Qty: 1 0RF Rx Instructions: one time dose codeine-guaifenesin 7.5-225 mg/5 mL liquid 10 ml PO ONCE Qty: 473 0RF Rx Instructions: every 6 hours as needed for cough Discharge Instructions Instructions: Pneumonia (ED) Additional Instructions: Your chest x-ray noted a possible right lower lobe pneumonia. Prescriptions for an inhaler, cough medication and antibiotics have been sent electronically to your pharmacy. Your medication list also notes lisinopril which can be the cause of a chronic cough. Follow-up with your primary care doctor in 1 week. Return to the emergency department with any worsening or new concerning symptoms. Discharge Data Discharge Date/Time-TO BE ENTERED AT DEPARTURE: 06/17/22 13:10 Discharge Physician: Melissa Mc Medical Decision Making 56-year-old male with a history of hypertension, hyperlipidemia, diabetes, obesity presents for persistent cough with occasional clear sputum and shortness of breath that occurs with coughing over the past 10 days. Vitals within normal limits. He appears comfortable and nontoxic. He is speaking in full sentences. He is afebrile with normal respiratory rate, heart rate and oxygen saturation. His lungs are clear throughout. Normal ENT exam. Review of medications reveals that he is taking lisinopril which discussed can also cause chronic cough. Patient referred for chest x-ray which notes a patchy right lower lobe infiltrate. He appears hemodynamically stable and in no acute distress and do not see an indication for labs or additional imaging and patient is agreeable. Considering his history of diabetes and lack of wheezing and persistent shortness of breath, do not see indication for steroids and patient is agreeable due to risk of hypoglycemia. Patient takes doxycycline chronically for rosacea. Prescriptions for an inhaler, cough medication and antibiotics have been sent electronically to his pharmacy. Advised to follow up with the primary care doctor for re-evaluation. Usual and customary return precautions given prior to discharge. Medical Records Medical records reviewed: Yes I reviewed the patient's medical records. Imaging Data Radiologic Study: Radiologist's impression: XR Chest Exam date and time: 06/17/2022 12:08 PM Age: 56 years old Clinical indication: Other: Cough, R/O acute disease TECHNIQUE: Imaging protocol: Radiologic exam of the chest. Views: 2 views. COMPARISON: XR PORTABLE CHEST AP 24/02/2022 15:10 FINDINGS: Lungs: Patchy infiltrate right lower lobe. No focal consolidation. Pleural spaces: Unremarkable. No pleural effusion. No pneumothorax. Heart/Mediastinum: Stable cardiomediastinal silhouette. Bones/joints: Multilevel degenerative changes of the spine. IMPRESSION: Patchy right lower lobe infiltrate. HPI General Mode of arrival: ambulatory . Date/Time Provider Initiated Documentation: 06/17/22 11:52 . Limitations to Documentation: no limitations . Information obtained by: patient . HPI Narrative: Patient is a 56-year-old male with a history of obesity, diabetes, hypertension, hyperlipidemia presents for persistent cough for the past 10 days. Patient states he was exposed to his grandchildren recently who had similar symptoms and diagnosed with ear infection and started on antibiotics. Patient denies any ear pain. He states that he has nasal congestion, clear nasal discharge, sore throat that mainly occurs with coughing, cough with clear sputum and occasional shortness of breath that occurs with coughing. Patient states his advised him to come to the ER for evaluation as they are traveling to [place] tomorrow. He denies any known fever. He states he has been taking [id number] cough and cold medication without relief. He has also taken a few at home covid tests this week which he reports were negative. Related Data Home Medications Medication Instructions Recorded Confirmed ibuprofen 600 mg tablet 600 mg PO Q6H PRN pain #60 tabs 06/05/19 02/24/22 loratadine 10 mg capsule 10 mg PO DAILY #90 tab-caps 12/11/19 06/17/22 atorvastatin 40 mg tablet 40 mg PO QHS #90 tabs 04/28/20 02/24/22 fluticasone propionate 50 1 spray intranasal BID #9.9 mL 04/28/20 06/17/22 mcg/actuation nasal spray,suspension (Flonase Allergy Relief) polyvinyl alcohol 1.4 % eye drops 2 drp ophthalmic (eye) BID-QID PRN 10/20/21 02/24/22 (Artificial Tears (polyvinyl irritated, dry eye(s) #15 mL alcohol)) soft lens rinse,store solution #118 mL 10/20/21 02/24/22 (Saline Solution) dapagliflozin 10 mg tablet 10 mg PO DAILY #90 tabs 12/25/21 02/24/22 (Farxiga) glimepiride 2 mg tablet 2 mg PO DAILY #90 tabs 12/25/21 06/17/22 lisinopril 5 mg tablet 5 mg PO DAILY #90 tabs 01/15/22 06/17/22 metformin 750 mg tablet,extended 750 mg PO DAILY #90 tabs 01/15/22 06/17/22 release 24 hr albuterol sulfate 90 mcg/actuation 2 puff inhalation Q6H PRN 06/17/22 aerosol inhaler shortness of breath or wheezing #8.5 grams benzonatate 100 mg capsule 100 mg PO TID PRN cough #14 caps 06/17/22 doxycycline hyclate 20 mg tablet 1 tab PO BID 06/17/22 06/17/22 levofloxacin 750 mg tablet 750 mg PO DAILY 5 days #5 tabs 06/17/22 Previous Rx's Medication Instructions Recorded ibuprofen 600 mg tablet 600 mg PO Q6H PRN pain #60 tabs 06/05/19 loratadine 10 mg capsule 10 mg PO DAILY #90 tab-caps 12/11/19 atorvastatin 40 mg tablet 40 mg PO QHS #90 tabs 04/28/20 fluticasone propionate 50 1 spray intranasal BID #9.9 mL 04/28/20 mcg/actuation nasal spray,suspension (Flonase Allergy Relief) polyvinyl alcohol 1.4 % eye drops 2 drp ophthalmic (eye) BID-QID PRN 10/20/21 (Artificial Tears (polyvinyl irritated, dry eye(s) #15 mL alcohol)) soft lens rinse,store solution #118 mL 10/20/21 (Saline Solution) dapagliflozin 10 mg tablet 10 mg PO DAILY #90 tabs 12/25/21 (Farxiga) glimepiride 2 mg tablet 2 mg PO DAILY #90 tabs 12/25/21 lisinopril 5 mg tablet 5 mg PO DAILY #90 tabs 01/15/22 metformin 750 mg tablet,extended 750 mg PO DAILY #90 tabs 01/15/22 release 24 hr albuterol sulfate 90 mcg/actuation 2 puff inhalation Q6H PRN 06/17/22 aerosol inhaler shortness of breath or wheezing #8.5 grams benzonatate 100 mg capsule 100 mg PO TID PRN cough #14 caps 06/17/22 levofloxacin 750 mg tablet 750 mg PO DAILY 5 days #5 tabs 06/17/22 Allergies Allergy/AdvReac Type Severity Reaction Status Date / Time Penicillins Allergy Severe anaphylaxis Verified 06/17/22 11:54 metformin AdvReac Intermediate GI issues Verified 06/17/22 11:54 General Stated Complaint: RespSymp GETACHEW: 4 Review of Systems All systems reviewed & are unremarkable except as noted in HPI and below Constitutional Constitutional: Reports as per HPI, Denies chills and Denies fever(s) Eyes Eyes: Denies blurry vision ENT Ears, Nose, Mouth, and Throat: Denies dizziness, Reports nasal congestion, Reports nasal discharge (clear), Denies sore throat and Denies throat swelling Cardiovascular Cardiovascular: Denies chest pain and Reports dyspnea (mostly when coughing) Respiratory Respiratory: Reports cough and Reports dyspnea (mostly when coughing) Gastrointestinal Gastrointestinal: Denies abdominal pain, Denies diarrhea and Denies vomiting Genitourinary Genitourinary: Denies hematuria and Denies dysuria Musculoskeletal Musculoskeletal: Denies back pain and Denies numbness Integumentary/Breasts Skin/Breast: Denies lesions and Denies rash Neurologic Neurologic: Denies dizziness, Denies localized weakness and Denies numbness Allergic/Immunologic Allergic/Immunologic: Denies throat swelling PFSH All Active Problems (Updated 06/17/22 @ 12:54 by Melissa Mc DO) Pneumonia (Acute) Acute blepharitis (Acute) Hx of chronic dermatitis (Acute) Cystic acne? Xeroderma? Hx with Dr. Naranjo. 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., [place] [employer] Pets and animals: No What is your relationship status?: Panel score (0-1 are the most socially isolated patients): 1 What type of physical activity do you participate in: none Seatbelt use: never Drive intox or ride w/intox route sales delivery driver: No Do you feel safe at home: Yes Do you feel safe in your relationship?: Yes Exam Const General: cooperative, healthy appearing and no acute distress Orientation: alert, awake and oriented x3 HENMT Head: normal to inspection Ears: hearing grossly normal bilaterally, external ears normal and TM's normal bilaterally General nose exam: external nose normal Face and sinus: normal facial exam Mouth: oral mucosae normal Teeth and gingiva: dentition normal Throat: posterior oropharynx normal Eyes General: appearance normal, both eyes and all related structures Neck Neck: normal visual inspection Resp Effort & Inspection: normal respiratory effort and able to speak in complete sentences Auscultation: clear to auscultation bilaterally Cardio Rate: regular rate Rhythm: regular rhythm Skin General skin exam: no rashes or lesions noted Neuro General: patient alert, patient awake and patient oriented x3 Motor: muscle tone normal throughout Extrem General: normal to inspection, full ROM and no edema Psych Appearance: grossly normal Affect: normal affect Course Vital Signs Vital signs: Vital Signs Temperature 98.2 F 06/17/22 11:49 Pulse 83 06/17/22 11:49 Respiratory Rate 18 06/17/22 11:49 Blood Pressure 143/87 H 06/17/22 11:49 Pulse Oximetry 98 06/17/22 11:49 Temperature 98.2 F 06/17/22 11:49 Temperature Source Temporal Artery Scan 06/17/22 11:49 Pulse 83 06/17/22 11:49 Respiratory Rate 18 06/17/22 11:49 Blood Pressure 143/87 H 06/17/22 11:49 Blood Pressure Position Sitting 06/17/22 11:49 Pulse Oximetry 98 06/17/22 11:49 Oxygen Delivery Method Room Air 06/17/22 11:49 Oxygen Flow Rate 0 06/17/22 11:49
--- NOTE | 2022-06-17 12:49 | DI.VRAD_ITS ---
PROCEDURE INFORMATION: Exam: XR Chest Exam date and time: 06/17/2022 12:08 PM Age: 56 years old Clinical indication: Other: Cough, R/O acute disease TECHNIQUE: Imaging protocol: Radiologic exam of the chest. Views: 2 views. COMPARISON: XR PORTABLE CHEST AP 24/02/2022 15:10 FINDINGS: Lungs: Patchy infiltrate right lower lobe. No focal consolidation. Pleural spaces: Unremarkable. No pleural effusion. No pneumothorax. Heart/Mediastinum: Stable cardiomediastinal silhouette. Bones/joints: Multilevel degenerative changes of the spine. IMPRESSION: Patchy right lower lobe infiltrate. Dictated and Authenticated by: Mai Fan MD. Ordering:PJ Torres MD
== END 2022-06-17 13:10 | disposition home or self-care (01) ==
PROVIDERS: Emergency Provider Physician Assistant; PCP Family Medicine
DX: J18.9 Pneumonia, unspecified organism (principal); I10 Essential (primary) hypertension; E11.9 Type 2 diabetes mellitus without complications; Z79.84 Long term (current) use of oral hypoglycemic drugs
CPT/HCPCS: 99283; 71046; 99284

== ENCOUNTER 2023-08-08 12:50 | Outpatient (CLI) | payer BC, SELFPAY ==
[2023-08-08 13:10] LABS: TSH (W/Ref FT4) 2.39 uIU/mL (0.36-3.74)
== END 2023-08-08 12:51 | disposition home or self-care (01) ==
LOC: LBO 12:51
PROVIDERS: PCP Family Medicine; Visit Provider Family Medicine
DX: R25.1 Tremor, unspecified (principal)
CPT/HCPCS: 36415; 84443

== ENCOUNTER → 2023-08-19 02:58 | Outpatient (CLI) | payer BC, SELFPAY ==
[2023-08-19 08:51] LABS: Estimated GFR 88.88 (mL/min/1.73m2)
[2023-08-19] MEDS: Omnipaque 350 MG/ML 500 ML BTL-Imaging package 100 ML IJ (09:54)
[2023-08-19] MEDS: Normal Saline - Diluent 50 ML VIAL IJ (09:56)
[2023-08-19] MEDS: Barium Sulfate 2% W/V-Creamy Vanilla Smoothie 450 ML BTL 900 ML PO (10:02)
--- NOTE | 2023-08-19 10:10 | DI.CT_ITS ---
Exam(s) CT CHEST/ABD/PEL W EXAM: CT CHEST/ABD/PEL W CLINICAL HISTORY: Sharp LUQ pain, possible rib frx?, abd pain, R10.9. TECHNIQUE: Imaging Protocol: Axial computed tomography images with coronal and sagittal reformatted images were created and reviewed CONTRAST MATERIAL: Intravenous: Omnipaque 350 Contrast volume:100 ml Oral: yes / no COMPARISON: CR,XR XR CHEST 2V PA LATERAL from 06/17/2022 FINDINGS: CHEST: Tracheobronchial tree: Patent where visualized. Pulmonary parenchyma: No consolidation or dominant measurable mass. Pleura: No effusion or pneumothorax. Lymph nodes: Within normal limits. Aorta: Thoracic portion non-dilated. Heart: Normal size. No coronary artery calcifications visible. Bones: The changes. No lytic or blastic lesions.No compression fractures. No rib fractures identified . ABDOMEN and PELVIS: Liver: Mildly enlarged. Mild hepatic steatosis.. No measurable mass. Gallbladder and biliary tract: No evidence of stones or wall thickening. No biliary dilatation. Pancreas: Normal density, no abnormal calcifications or inflammatory process. Spleen: Normal. Kidneys: Normal size, contour and axis. No radiodense stones or obstructive uropathy. No suspicious m asses seen. Adrenal glands: No masses seen. Aorta: Abdominal portion non-dilated. Mild atherosclerotic changes. Lymph nodes: Within normal limits. Soft tissues: Small amount of fat in both inguinal canals. Bladder: Unremarkable. Bowel: Diverticulosis. Normal quantity of stool. Appendix normal. No obstruction or bowel wall thi ckening. Peritoneal cavity: No ascites. No focal collection or mesenteric inflammatory response. Bones: Degenerative changes in the spine. Reproductive organs: Within normal limits. IMPRESSION: No acute abnormality in the chest, abdomen or pelvis.. RADIATION DOSE DELIVERED: Total DLP DATA REPOSITORY: All CT scans at this facility are submitted to the National Radiology Data Registry (NRDR) Dose Index Registry (DIR) with the [employer] (ACR). RADIATION OPTIMIZATION: All CT scans at this facility use at least one of these dose optimization te chniques: automated exposure control; mA and/or kV adjustment per patient size (includes targeted exa ms where dose is matched to clinical indication); or iterative reconstruction.
== END ==
PROVIDERS: PCP Family Medicine; Visit Provider Family Medicine
DX: R10.11 Right upper quadrant pain (principal)
CPT/HCPCS: 74177; 71260; 82565

== ENCOUNTER 2024-06-09 12:57 | Outpatient (CLI) | payer BC, SELFPAY ==
--- NOTE | 2024-06-09 10:19 | DI.RAD_ITS ---
Exam(s) XR LUMBAR SPINE COMPLETE EXAM: XR LUMBAR SPINE COMPLETE CLINICAL HISTORY: Chronic, worsening pain M54.50 LOW BACK PAIN. TECHNIQUE: 2D digital imaging was performed. Five views. COMPARISON: CR,XR XR CHEST 2V PA LATERAL from 06/17/[address] CHEST/ABD/PEL W from 08/19/2023 FINDINGS: BONES: No fracture or destructive lesion. Vertebral body heights are maintained. Flowing osteophyt es in the lower thoracic upper lumbar region. Mild facet degenerative changes at L5-S1. DISKS: Intervertebral disc spaces are maintained. ALIGNMENT: Lumbar spinal alignment is within normal limits. SOFT TISSUE: Normal. IMPRESSION: Flowing osteophytes in the lower lumbar thoracic region. DATA REPOSITORY: RADIATION DOSE DELIVERED:
== END 2024-06-09 13:17 ==
LOC: DI 12:57
PROVIDERS: PCP Family Medicine; Visit Provider Family Medicine
DX: M25.78 Osteophyte, vertebrae (principal)
CPT/HCPCS: 72110

== ENCOUNTER 2024-06-30 02:13 | Outpatient (CLI) | payer BC, SELFPAY ==
--- NOTE | 2024-06-30 10:30 | DI.MRI_ITS ---
Exam(s) MR THORACIC SPINE WO EXAM: MR THORACIC SPINE WO CLINICAL HISTORY: Possible diagnosis based on xray,DIFFUSE IDIOPATHIC SKELETAL HYPEROSTOSIS. TECHNIQUE: Multiplanar multisequence MRI of the Thoracic spine was performed. COMPARISON: CR,XR XR CHEST 2V PA LATERAL from 06/17/2022 CR XR LUMBAR SPINE COMPLETE from 06/09/2024 FINDINGS: Bones: The vertebral body heights are well maintained. Alignment is satisfactory. The marrow signal characteristics are unremarkable. Endplate osteophytes are present at multiple levels projecting anteriorly to a, eccentrically toward the right. The oste ophytes appear bridging, consistent with DISH. Cord: The thoracic cord is normal size and signal intensity. No intrinsic cord lesion is present. Soft tissues: Normal. T1-2: No disc herniation or bulge is identified. T2-3: No disc herniation or bulge is identified. T3-4: No disc herniation or bulge is identified. T4-5: No disc herniation or bulge is identified. T5-6: No disc herniation or bulge is identified. T6-7: No disc herniation or bulge is identified. T7-8: No disc herniation or bulge is identified. T8-9: No disc herniation or bulge is identified. T9-10: No disc herniation or bulge is identified. T10-11:No disc herniation or bulge is identified. T11-12: No disc herniation or bulge is identified. T12-L1: No disc herniations or bulges are present. IMPRESSION: Bridging osteophytes noted throughout the thoracic region consistent with DISH. There is no evidence of disc herniation, neural foraminal narrowing or central canal stenosis. DATA REPOSITORY:
--- NOTE | 2024-06-30 11:10 | DI.MRI_ITS ---
Exam(s) MR LUMBAR SPINE WO EXAM: MR LUMBAR SPINE WO CLINICAL HISTORY: Possible diagnosis based on xray,DIFFUSE IDIOPATHIC SKELETAL HYPEROSTOSIS,. TECHNIQUE: Multiplanar multisequence MRI of the Lumbar spine was performed. COMPARISON: CT CT CHEST/ABD/PEL W from 08/19/2023 CR XR LUMBAR SPINE COMPLETE from 06/09/2024 FINDINGS: Bones: The last intervertebral disc space is designated the L5/S1 level for the numbering purpose of this ex amination. The vertebral body heights are well maintained. Alignment: Unremarkable. The marrow signal characteristics are unremarkable. Small hemangioma noted in the L2 vertebral body . Cord: The conus tip ends at the T12 level. It is of normal size and signal intensity. T12-L1: No focal disc herniation is present. No central spinal canal stenosis.No neural foraminal st enosis. L1-2:Bridging osteophytes noted anteriorly. No central spinal canal stenosis.No neural foraminal kathy nosis. L2-3:Calcification along the posterior longitudinal ligament at the level of disc centrally. No foca l disc herniation is present. No central spinal canal stenosis.No neural foraminal stenosis. L3-4: no significant osteophytes.No focal disc herniation is present. No central spinal canal steno sis.No neural foraminal stenosis. L4-5: Bone small endplate osteophytes, eccentric toward the right. Mild disc bulging eccentric towa rd the left causing mild left neural foraminal narrowing. No central spinal canal stenosis.No right neural foraminal stenosis. L5-S1: Mild facet degenerative changes. Minimal concentric disc bulging.No focal disc herniation is present. No central spinal canal stenosis.No neural foraminal stenosis. The visualized SI joints and sacrum are unremarkable. Soft tissues: The paraspinal soft tissues are unremarkable. IMPRESSION: Bridging osteophytes at L1-2. Posterior bridging osteophytes at L 2 3 which causes mild narrowing of the AP dimension of the canal but no significant overall central canal stenosis. Mild disc bulging at L4-5 causing mild left neural foraminal narrowing. DATA REPOSITORY:
== END 2024-06-30 02:33 ==
LOC: DI 02:13
PROVIDERS: PCP Family Medicine; Visit Provider Family Medicine
DX: M48.15 Ankylosing hyperostosis [Forestier], thoracolumbar region (principal)
CPT/HCPCS: 72146; 72148

== ENCOUNTER 2024-11-15 07:15 | Emergency (ER) | payer BC, SELFPAY ==
[2024-11-15 07:20] VITALS: BP 150/90; PULSE 84; RESP 12; TEMP 36.3; O2SAT 98
--- NOTE | 2024-11-15 07:30 | RT.EKG_ITS ---
APPROVED REPORT Exam: Resting ECG Reason for Exam: qt Patient Location: E HR:86 bpm ECG Measurements Heart Rate 86 AXIS NE 202 P 17 QRSd 92 QRS 215 QT 362 T 60 QTc 434 Conclusion Sinus rhythm...normal P axis, V-rate 60- 99 Borderline prolonged NE interval...NE >202, V-rate 50- 90 Markedly posterior QRS axis...late V-lead transition I have reviewed and interpreted ECG and agree with software generated interpretation.
[2024-11-15] MEDS: predniSONE 20 MG TAB 60 MG PO (07:36)
[2024-11-15] MEDS: Budesonide/Formoterol 160/4.5 6 GM 60 PUFF INH IH (07:37)
[2024-11-15] MEDS: Inhaler, Assist Device 1 EACH MC (07:37)
[2024-11-15] MEDS: levoFLOXacin 500 MG, levoFLOXacin 250 MG 750 MG PO (07:39)
[2024-11-15 07:41] VITALS: BP 150/90; PULSE 84; RESP 12; TEMP 36.3; O2SAT 98
--- NOTE | 2024-11-15 07:44 | W.ED.GENAD ---
Discharge Plan Disposition Patient Disposition: Home Condition: Good Discharge Details Clinical Impression: Community acquired pneumonia Primary Care Provider: Jordan Vega ED Provider: Tawanda Bowman Home Meds and New Rx's Prescriptions: New benzonatate 100 mg capsule 100 mg PO TID Qty: 30 0RF prednisone 50 mg tablet 50 mg PO DAILY Qty: 5 0RF levofloxacin 750 mg tablet 750 mg PO DAILY Qty: 6 0RF No Action lisinopril 40 mg tablet 40 mg PO DAILY Qty: 90 3RF citalopram 20 mg tablet 20 mg PO DAILY Qty: 90 3RF dapagliflozin propanediol [Farxiga] 10 mg tablet 10 mg PO DAILY Qty: 90 3RF doxycycline hyclate 20 mg tablet 20 mg PO BID Qty: 180 2RF metformin 750 mg tablet extended release 24 hr 750 mg PO DAILY Qty: 90 3RF baclofen 5 mg tablet 5 mg PO TID Mounjaro 7.5 mg/0.5 mL pen injector 7.5 mg subcut QWEEK Qty: 2 0RF (DME) Saline Solution Solution See Rx Instructions .ROUTE .MEDSUPPLY Qty: 118 1RF Rx Instructions: As directed atorvastatin 40 mg tablet 40 mg PO QHS Qty: 90 3RF meloxicam 15 mg tablet 15 mg PO DAILY naproxen 500 mg tablet 500 mg PO BID Qty: 60 1RF Discharge Instructions Instructions: Community-Acquired Pneumonia, Adult (DC) Additional Instructions: At this time your symptoms are consistent with mild pneumonia. Please take the antibiotic levofloxacin as prescribed. As we discussed together, please be mindful of any sensation of tendon irritation, avoid aggressive fast movements while on this medication as it can cause mild tendon irritation or disruption. Please take the prednisone and Tessalon Perles as prescribed to help with the cough. Please take your Symbicort inhaler, 2 puffs every 12 hours to help with your breathing. You can take your albuterol every 6 hours as well. If you notice any worsening of your symptoms, or any new symptoms such as vomiting, diarrhea, fever, chills, shortness of breath, chest pain, numbness, weakness, or fainting , please return immediately to the emergency department for reevaluation. Please follow up with your primary care provider as soon as possible for reassessment and reevaluation. As always, it was a pleasure participating in your medical care today. Referrals: Jordan Vega DO [Primary Care Provider] - [facility] General Date/Time Provider Initiated Documentation: 11/15/24 07:21. HPI Narrative: 59-year-old male with a past medical history of type 2 diabetes, DISH, hepatic steatosis, hypertension, high cholesterol, reactive airway disease on albuterol inhaler, presents today for evaluation of cough. Patient states that about a week or so ago his grandchildren came by and they were all sick with runny nose and congestion. He subsequently has been sick for the last week, with mild cough, congestion and has been utilizing his albuterol inhaler every 4-6 hours. His cough is gotten worse, he has productive sputum production, and feels fatigued. He admits to mild shortness of breath with his cough. He denies any fevers. No other complaints at this time. No hemoptysis. No diarrhea. Related Data Home Medications ?Medication ?Instructions ?Recorded ?Confirmed soft lens rinse,store solution #118 mL 10/20/21 10/13/24 (Saline Solution) atorvastatin 40 mg tablet 40 mg PO QHS #90 tabs 12/09/23 10/13/24 lisinopril 40 mg tablet 40 mg PO DAILY #90 tabs 03/10/24 10/13/24 citalopram 20 mg tablet 20 mg PO DAILY #90 tabs 07/17/24 10/13/24 dapagliflozin propanediol 10 mg 10 mg PO DAILY #90 tabs 07/17/24 10/13/24 tablet (Farxiga) doxycycline hyclate 20 mg tablet 20 mg PO BID #180 tabs 07/17/24 10/13/24 metformin 750 mg tablet,extended 750 mg PO DAILY #90 tabs 07/17/24 10/13/24 release 24 hr meloxicam 15 mg tablet 15 mg PO DAILY Chronic low back 09/10/24 10/13/24 pain (DISH) naproxen 500 mg tablet 500 mg PO BID #60 tabs 10/08/24 10/13/24 baclofen 5 mg tablet 5 mg PO TID 10/13/24 10/13/24 tirzepatide 7.5 mg/0.5 mL 7.5 mg (0.5 mL) subcut QWEEK #2 mL 10/13/24 10/13/24 subcutaneous pen injector (Mounjaro) benzonatate 100 mg capsule 100 mg PO TID #30 caps 11/15/24 glimepiride 2 mg tablet mg 11/15/24 levofloxacin 750 mg tablet 750 mg PO DAILY #6 tabs 11/15/24 lisinopril 20 mg tablet mg 11/15/24 prednisone 50 mg tablet 50 mg PO DAILY #5 tabs 11/15/24 propranolol 20 mg tablet 20 mg PO DAILY 11/15/24 11/15/24 tirzepatide 5 mg/0.5 mL 5 mg subcut QWEEK 11/15/24 11/15/24 subcutaneous pen injector (Mounjaro) Previous Rx's ?Medication ?Instructions ?Recorded soft lens rinse,store solution #118 mL 10/20/21 (Saline Solution) atorvastatin 40 mg tablet 40 mg PO QHS #90 tabs 12/09/23 lisinopril 40 mg tablet 40 mg PO DAILY #90 tabs 03/10/24 citalopram 20 mg tablet 20 mg PO DAILY #90 tabs 07/17/24 dapagliflozin propanediol 10 mg 10 mg PO DAILY #90 tabs 07/17/24 tablet (Farxiga) doxycycline hyclate 20 mg tablet 20 mg PO BID #180 tabs 07/17/24 metformin 750 mg tablet,extended 750 mg PO DAILY #90 tabs 07/17/24 release 24 hr naproxen 500 mg tablet 500 mg PO BID #60 tabs 10/08/24 tirzepatide 7.5 mg/0.5 mL 7.5 mg (0.5 mL) subcut QWEEK #2 mL 10/13/24 subcutaneous pen injector ([employer]) benzonatate 100 mg capsule 100 mg PO TID #30 caps 11/15/24 levofloxacin 750 mg tablet 750 mg PO DAILY #6 tabs 11/15/24 prednisone 50 mg tablet 50 mg PO DAILY #5 tabs 11/15/24 Allergies Allergy/AdvReac Type Severity Reaction Status Date / Time Penicillins Allergy Severe anaphylaxis Verified 11/15/24 07:55 metformin AdvReac Intermediate GI issues Verified 11/15/24 07:55 General Stated Complaint: RespSymp GETACHEW: 3 Exam Narrative Exam Narrative: 1.Const: Well-nourished, Well-developed, appearing stated age 2.Eyes: PERRL, no conjunctival injection, and symmetrical lids. 3.ENT: Atraumatic external nose and ears. Moist MM. Neck: Symmetric, trachea midline, No thyromegaly. 4.CVS: +S1/S2, Peripheral pulses 2+ and equal in all extremities. Brisk capillary refill in all extremities. 5.RESP: Wheezes, rhonchi, scattered crackles. 6.GI: Soft, Nontender/Nondistended, No hepatosplenomegaly. No guarding or rebound. 7.MSK: Normocephalic/Atraumatic, Extremities w/o deformity or ttp No cyanosis or clubbing, Normal movement of all extremities 8.Skin: Warm, Dry. No rashes or lesions. 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 Sensation grossly intact, no focal neurologic deficits. 10.Psych: (AAO) x3. Appropriate mood and affect Course Vital Signs Vital signs: Vital Signs Temperature 36.3 C L 11/15/24 07:20 Pulse 84 11/15/24 07:20 Respiratory Rate 12 11/15/24 07:20 Blood Pressure 150/90 H 11/15/24 07:20 Pulse Oximetry 98 11/15/24 07:20 Temperature 36.3 C L 11/15/24 07:20 Temperature Source Temporal Artery Scan 11/15/24 07:20 Pulse 84 11/15/24 07:20 Respiratory Rate 12 11/15/24 07:20 Blood Pressure 150/90 H 11/15/24 07:20 Pulse Oximetry 98 11/15/24 07:20 Oxygen Delivery Method Room Air 11/15/24 07:20 Oxygen Flow Rate 0 11/15/24 07:20 Medical Decision Making 59-year-old male with a past medical history of type 2 diabetes, DISH, hepatic steatosis, hypertension, high cholesterol, reactive airway disease on albuterol inhaler, presents today for evaluation of cough. Patient states that about a week or so ago his grandchildren came by and they were all sick with runny nose and congestion. He subsequently has been sick for the last week, with mild cough, congestion and has been utilizing his albuterol inhaler every 4-6 hours. His cough is gotten worse, he has productive sputum production, and feels fatigued. He admits to mild shortness of breath with his cough. He denies any fevers. No other complaints at this time. No hemoptysis. No diarrhea. Exam demonstrates stable appearing male, no hypoxemia or tachypnea or tachycardia. No evidence of sepsis. Lungs demonstrate scattered wheezes rales and rhonchi. Bedside ultrasound was performed and demonstrates a few areas of B-lines and mild early consolidation. Concern for pneumonia. No hypoxemia to necessitate admission, no sepsis to necessitate broad-spectrum IV antibiotics. Because of the patient's chronic doxycycline use, I suspect that atypicals are notably being covered already, this is more likely a community-acquired pneumonia component. I do not feel that azithromycin would be beneficial, and I worry that Augmentin may not be broad enough for coverage especially with his chronic antibiotic use. I feel that Levaquin would be the most appropriate antibiotic at this stage with his history, risk factors and doxycycline use. However he is on citalopram which does have potential mild QT prolongation. Because of this we did get an EKG to make sure that his QT was stable, and his QT is noted at 362, with a QTc of 434, both of which are not prolonged. We will give a dose of Levaquin here, prescription for home, will do a short 5-day course of steroids with a first dose here, will give Symbicort inhaler, and recommend Tessalon Perles as needed for cough. Discussed red flags which to return. If you notice any worsening of your symptoms, or any new symptoms such as vomiting, diarrhea, fever, chills, shortness of breath, chest pain, numbness, weakness, or fainting , please return immediately to the emergency department for reevaluation. Please follow up with your primary care provider as soon as possible for reassessment and reevaluation. As always, it was a pleasure participating in your medical care today. Quality:SDOH Health Related Social Needs: No Data to Display PFSH All Active Problems (Updated 11/15/24 @ 07:55 by Tawanda Bowman DO) Community acquired pneumonia (Acute) Agoraphobia (Acute) DISH (diffuse idiopathic skeletal hyperostosis) (Acute) Low back pain (Acute) Type II diabetes mellitus (Acute) Plantar fasciitis of left foot (Acute) Macular edema (Acute 01/10/24) [facility] [place] Severe non-proliferative diabetic retinopathy (Acute 01/10/24) [facility] Benign familial tremor (Acute) Meralgia paraesthetica (Acute) Anxiety (Chronic) Acute blepharitis (Acute) Hx of chronic dermatitis (Acute) Cystic acne? Xeroderma? Hx with Dr. Naranjo. 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
[2024-11-15 08:18] LABS: COVID-19 PCR Negative (Negative); Influenza A PCR Negative (Negative); Influenza B PCR Negative (Negative); RSV PCR Negative (Negative)
[2024-11-15 08:19] LABS: Source Nasopharynx
== END 2024-11-15 08:06 | disposition home or self-care (01) ==
PROVIDERS: Emergency Provider Student in an Organized Health Care Education/Training Program; PCP Family Medicine
DX: J18.9 Pneumonia, unspecified organism (principal); I10 Essential (primary) hypertension; E11.69 Type 2 diabetes mellitus with other specified complication; J45.909 Unspecified asthma, uncomplicated
CPT/HCPCS: 87637; 93005; 99284; 93010; J7512

== ENCOUNTER 2025-05-22 22:46 | Emergency (ER) | payer BC, SELFPAY ==
[2025-05-22] VITALS (8 sets, daily range): BP systolic 144–168; BP diastolic 71–89; PULSE 74–101; RESP 12–21; TEMP 37.3; O2SAT 88–99
--- NOTE | 2025-05-22 22:56 | ED.GENADUL_ITS ---
Discharge Plan Disposition Patient Disposition: Home Condition: Improving Discharge Details Clinical Impression: Muscle spasms of neck Primary Care Provider: Jordan Vega ED Provider: Brian De Leon Meds and New Rx's Prescriptions: New diazepam [Valium] 5 mg tablet 5 mg PO TID PRN (Reason: muscle spasm) Qty: 20 0RF Continued citalopram 20 mg tablet 20 mg PO DAILY Qty: 90 3RF doxycycline hyclate 20 mg tablet 20 mg PO BID Qty: 180 2RF metformin 750 mg tablet extended release 24 hr 750 mg PO DAILY Qty: 90 3RF insulin degludec [Tresiba FlexTouch U-100] 100 unit/mL (3 mL) insulin pen 11 unit subcut DAILY Qty: 15 3RF atorvastatin 40 mg tablet 40 mg PO QHS Qty: 90 3RF gabapentin 300 mg capsule 300 - 600 mg PO QPM lisinopril 40 mg tablet 40 mg PO DAILY Qty: 90 3RF naproxen 500 mg tablet 500 mg PO BID Qty: 60 1RF propranolol 20 mg tablet 20 mg PO DAILY Patient Comments: TAKE ONE TABLET BY MOUTH TWICE A DAY benzonatate 100 mg capsule 100 mg PO TID Patient Comments: TAKE ONE CAPSULE BY MOUTH THREE TIMES A DAY NEEDED FOR COUGH FOR 7 DAYS acetaminophen 500 mg tablet 1,000 mg PO Q8H Patient Comments: TAKE TWO TABLETS BY MOUTH THREE TIMES A DAY aspirin 81 mg tablet,chewable 1 tab PO BID Patient Comments: CHEW ONE TABLET BY MOUTH TWICE A DAY FOR 30 DAYS Discontinued hydromorphone 2 mg tablet Patient Comments: TAKE ONE TABLET BY MOUTH EVERY 3 HOURS NEEDED FOR PAIN pantoprazole 40 mg tablet,delayed release (DR/EC) PO Patient Comments: TAKE ONE TABLET BY MOUTH EVERY DAY No Action (DME) Saline Solution Solution See Rx Instructions .ROUTE .MEDSUPPLY Qty: 118 1RF Rx Instructions: As directed Discharge Instructions Instructions: Muscle Spasm ED Additional Instructions: You were seen in the ED for left sided neck pain that appears to be related to muscle spasm. Your laboratory studies and imaging studies are reassuring. I did speak with orthopedics on-call at [facility]. As we discussed you can discontinue the hydromorphone and pantoprazole. You should continue the naproxen, acetaminophen, aspirin and gabapentin as well as your other daily medications. A prescription for Valium which helped with your pain here has been sent to pharmacy. [facility] and gentle massage should help. Please contact [facility] orthopedics Saturday or Saturday to give them an update. Return to ED for any severe worsening pain, fever, neurologic change, other concerns. HPI General Mode of arrival: ambulatory . Date/Time Provider Initiated Documentation: 05/22/25 22:56 . Limitations to Documentation: no limitations . Information obtained by: patient, family, RN notes reviewed and old records reviewed . HPI Narrative: Patient presents to ED with left-sided posterior neck pain radiating down into the upper scapular area since Saturday. Patient underwent right total hip replacement on Saturday at [facility]. He did receive a spinal block as part of the surgery. His reports that he had a syncopal event postoperatively in the bathroom with her. She was able to get him onto the toilet and he did not have any actual fall to the floor or head injury. He was discharged that evening around 9 PM. He has noticed this neck pain since discharge. It is described as running from the back of his head down to the mid neck area and out toward the left shoulder. It is significantly worse if he attempts to extend his neck. He actually keeps his head down and looks at the ground as his most comfortable position. Movement left or right does not increase the pain. Movement of his left upper extremity does not increase the pain. He does not have a headache per se. He denies any low back pain. He reports that his hip is actually feeling very well. He has been participating in physical therapy. He reports that he is having some paresthesias and weakness to both upper extremities especially after he wakes up from sleeping. This seems to come and go and is not persistent. He has not had a fever that he is aware of but he has been having sweats. Pain medication that he has been taking for his hip does not help his neck at all. He was referred in to ED for evaluation by [facility] orthopedics. Related Data Home Medications ?Medication ?Instructions ?Recorded ?Confirmed soft lens rinse,store solution #118 mL 10/20/21 (Saline Solution) atorvastatin 40 mg tablet 40 mg PO QHS #90 tabs 05/22/25 citalopram 20 mg tablet 20 mg PO DAILY #90 tabs 06/3005/22/25 doxycycline hyclate 20 mg tablet 20 mg PO BID #180 tab s 07/17/24 05/22/25 metformin 750 mg tablet,extended 750 mg PO DAILY #90 t abs 07/17/24 05/22/25 release 24 hr propranolol 20 mg tablet 20 mg PO DAILY 11/15/2405/01 gabapentin 300 mg capsule 300 - 600 mg PO QPM Back and hip 01/05/25 05/22/25 pain lisinopril 40 mg tablet 40 mg PO DAILY #90 tabs 02/2805/22/25 naproxen 500 mg tablet 500 mg PO BID #60 tabs 03/1605/22/25 insulin degludec 100 unit/mL (3 11 unit (0.11 mL) subc ut DAILY #15 05/11/25 05/22/25 mL) subcutaneous pen (Tresiba mL FlexTouch U-100 insulin) benzonatate 100 mg capsule 100 mg PO TID 05/22/2505/01 acetaminophen 500 mg tablet 1,000 mg PO Q8H 05/23/25 0 05/23/25 aspirin 81 mg chewable tablet 1 tab PO BID 05/23/25 diazepam 5 mg tablet (Valium) 5 mg PO TID PRN muscle s pasm #20 05/23/25 tabs Previous Rx's ?Medication ?Instructions ?Recorded soft lens rinse,store solution #118 mL 10/20/21 (Saline Solution) atorvastatin 40 mg tablet 40 mg PO QHS #90 tabs citalopram 20 mg tablet 20 mg PO DAILY #90 tabs 06/30 05/23 doxycycline hyclate 20 mg tablet 20 mg PO BID #180 tab s 07/17/24 metformin 750 mg tablet,extended 750 mg PO DAILY #90 t abs 07/17/24 release 24 hr lisinopril 40 mg tablet 40 mg PO DAILY #90 tabs 02/28 04/23 naproxen 500 mg tablet 500 mg PO BID #60 tabs 03/16 insulin degludec 100 unit/mL (3 11 unit (0.11 mL) subc ut DAILY #15 05/11/25 mL) subcutaneous pen (Tresiba mL FlexTouch U-100 insulin) diazepam 5 mg tablet (Valium) 5 mg PO TID PRN muscle s pasm #20 05/23/25 tabs Allergies Allergy/AdvReac Type Severity Reaction Status Date / Time Penicillins Allergy Severe anaphylaxis Verified 05/22/25 23:00 tirzepatide (From Mounjaro) AdvReac Severe Diarrhea Verified 05/22/25 23:00 metformin AdvReac Intermediate GI issues Verified 05/22/25 23:00 General GETACHEW: 3 Exam Narrative Exam Narrative: Const: Obese male in NAD. VS per triage. HEENT: NC/AT. Normal facial exam. Neck: Pain with extension of neck and tender along the left paraspinal region of the mid neck. Upper trapezius feels tight but is not tender. No tenderness over the occipital notch. Normal flexion and turning head left/right. Trachea midline. Lungs: Normal respiratory effort. Lungs are clear. Cor: RRR without murmur. Good radial pulses. Back: No lumbar pain or tenderness. Neuro: A+O x 3. Normal speech, mentation, gait. Cranial nerves II - XII grossly intact. No gross motor or sensory deficit. Ext: No C/C/E. Right hip area with bruising, no erythema or warmth, good range of motion without pain. Medical Decision Making Patient presenting to ED with left neck pain posteriorly made much worse with extension of neck and much improved with flexion. It is tender over the left paraspinal mid spine area. No tenderness over the occipital notch. At this point currently neurologically intact. He is not febrile here. Pain has been present since discharge from [facility] and has not improved. He is not c omplaining of headache and not complaining of low back pain. Do not think this is related to meningitis. May potentially be all muscle spasm in the paraspinal trapezius area. Given the spinal block I suppose should consider possibility of abscess though why would this be in the neck and not the back. Will place IV and give IV Valium to see if this helps. Will check labs and obtain CT cervical spine as well as CT soft tissue neck. Patient's laboratory studies are reassuring with a normal white count and differential. Chemistries are unremarkable. CT scan of the cervical spine as well as CT of the soft tissue neck are unremarkable except for degenerative change. Patient reports good improvement with his pain and discomfort after IV Valium. He is now able to actually lie his head back without significant discomfort. This would suggest that this is in fact related to muscle spasm. I did call and speak to [facility] orthopedic coverage, Dr. Rivas. We discussed presentation, exam, labs and imaging as well as response to Valium. Will plan discharge home with prescription for oral Valium. Will discontinue his hydromorphone and pantoprazole which he seems to be having adverse reactions to. He will contact [facility] orthopedics Saturday or Saturday for an update. Return precautions provided. Lab Data Lab results reviewed: Yes I reviewed the patient's lab results. PFSH All Active Problems (Updated 05/23/25 @ 01:58 by Brian De Leon MD) Muscle spasms of neck (Acute) Primary osteoarthritis of right hip (Acute) Primary osteoarthritis of left hip (Acute) Agoraphobia (Acute) DISH (diffuse idiopathic skeletal hyperostosis) (Chronic) Low back pain (Acute) Type II diabetes mellitus (Chronic) With hyperglycemia, with long-term current use of insulin Plantar fasciitis of left foot (Acute) Macular edema (Acute 01/10/24) [facility] Severe non-proliferative diabetic retinopathy (Acute 01/10/24) [facility] Benign familial tremor (Acute) Meralgia paraesthetica (Acute) Anxiety (Chronic) Acute blepharitis (Acute) Hx of chronic dermatitis (Acute) Cystic acne? Xeroderma? Hx with Dr. Naranjo. Swelling of eye, right (Acute) Epidermal cyst (Acute) Rosacea (Chronic) Medical History Hypertension Hyperlipidemia associated with type 2 diabetes mellitus Sebaceous cyst Rosacea Hepatomegaly Hepatic steatosis Surgical History S/P total right hip arthroplasty at [facility] on 05/18/2025.Performed by Dr. 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
[2025-05-22] MEDS: diazePAM 10 MG/2 ML SYR 5 MG IVP (23:47)
[2025-05-22 23:52] LABS: Abs Immature Grans 0.04 10^3/uL (0.0-0.06); HCT 33.2 % (40.0-50.0); HGB 11.3 g/dL (13.5-17.5); Immature Grans % 0.5 %; MCH 30.5 pg (27.0-33.0); MCHC 34.0 % (32.0-36.0); MCV 90 fL (80-95); MPV 8.9 fL (8.0-11.0); Platelet Count 151 10^3/uL (130-400); RBC 3.71 10^6/uL (4.36-5.78); RDW 12.3 % (11.8-14.1); RDW-SD 40.4 fL; WBC 8.49 10^3/uL (4.4-10.8)
[2025-05-23] VITALS (17 sets, daily range): BP systolic 114–141; BP diastolic 60–73; PULSE 76–86; RESP 14–23; O2SAT 86–98
[2025-05-23 00:02] LABS: Anion Gap 5.3 mmol/L (3-11); BUN 17 mg/dL (7-18); CO2 30.7 mmol/L (21.0-32.0); Calcium 8.8 mg/dL (8.5-10.1); Chloride 99 mmol/L (98-107); Estimated GFR 99.62 (mL/min/1.73m2); Glucose 178 mg/dL (74-106); Potassium 4.0 mmol/L (3.5-5.1); Sodium 135 mmol/L (136-145)
--- NOTE | 2025-05-23 00:04 | DI.CT_ITS ---
Exam(s) CT CERVICAL SPINE RECONS EXAM: CT CERVICAL SPINE RECONS CLINICAL HISTORY: left mid cervical spine tenderness TECHNIQUE: COMPARISON: No exams were available for comparison FINDINGS: OSSEOUS: No evidence fracture nor listhesis nor offset of the spinal laminar line. There is moderate chronic disc space narrowing at C5-6 and C6-7 levels with anterior osseous lipping and calcification in the anterior longitudinal ligament at these 2 levels. Posteriorly there are no significant Luschka joint osteophytes although there is some mild posterior bony ridging evident at C5-6 level. Facet joints appear unremarkable. Minimal degenerative changes. No facet joint effusions. No malalignment. There appears to be some mild central canal stenosis at C5-6 and C6-7 levels. No obvious foraminal stenosis at these levels. IMPRESSION: No acute cervical spine findings. Degenerative disc disease at C5-6 and C6-7 levels. If clinically indicated follow-up MRI can be performed for added sensitivity and specificity. Preliminary virtual Radiology report was reviewed.
--- NOTE | 2025-05-23 00:04 | DI.CT_ITS ---
Exam(s) CT NECK W EXAM: CT NECK W INDICATION: left side paraspinal pain. COMPARISON: CT CT CERVICAL SPINE RECONS from 05/23/2025 TECHNIQUE: FINDINGS: VISUALIZED PARANASAL SINUSES: Unremarkable. NASOPHARYNX: Unremarkable ORODENTAL: Unremarkable. OROPHARYNX: Unremarkable. No masses evident. HYPOPHARYNX: Unremarkable. Valleculae and epiglottis and aryepiglottic folds appear normal. VOCAL CORDS: Unremarkable. No masses evident. Subglottic airway appears unremarkable. THYROID GLAND: Suggestion of possible subtle nodule in the left thyroid lobe. SALIVARY GLANDS: Unremarkable. No significant findings in the parotid and submandibular glands. LYMPH NODES: There is no adenopathy evident in the neck and supraclavicular regions. VISUALIZED LUNG APICES: No significant findings. OSSEOUS: Moderate central canal stenosis at C5-6 and C6-7 levels. No fractures evident. Facet joints appear unremarkable. IMPRESSION: 1. No significant focal findings in soft tissues of the neck. 2. Some degenerative disc disease at C5-6 and C6-7 levels noted. RADIATION DOSE DELIVERED: 416.78mGy.cm Total DLP DATA REPOSITORY: All CT scans at this facility are submitted to the National Radiology Data Registry (NRDR) Dose Index Registry (DIR) with the [employer] (ACR). RADIATION OPTIMIZATION: All CT scans at this facility use at least one of these dose optimization techniques: automated exposure control; mA and/or kV adjustment per patient size (includes targeted exams where dose is matched to clinical indication); or iterative reconstruction.
[2025-05-23] MEDS: Normal Saline Flush 10 ML SYR IVP (00:20)
[2025-05-23] MEDS: Normal Saline - Diluent 50 ML VIAL IJ (00:20)
[2025-05-23] MEDS: Omnipaque 350 MG/ML 100 ML BTL IJ (00:21)
--- NOTE | 2025-05-23 01:05 | DI.VRAD_ITS ---
PROCEDURE INFORMATION: Exam: CT Neck With Contrast Exam date and time: 05/23/2025 12:15 AM Age: 59 years old Clinical indication: Other: Left side paraspinal pain; Additional info: Left side paraspinal pain. Resent spinal block for right thr on Saturday TECHNIQUE: Imaging protocol: Computed tomography of the neck with contrast. Contrast material: OMNI 350; Contrast volume: 100 ml; Contrast route: INTRAVENOUS (IV); COMPARISON: CT CERVICAL SPINE RECONS 05/23/2025 12:15 AM FINDINGS: Salivary glands: Normal. Glands are normal in size. Pharynx: Unremarkable. No significant tonsillar enlargement. Larynx: Unremarkable. Epiglottis is normal. Thyroid: Small cyst in the left lobe. No enlarged or calcified nodules. Trachea: Visualized trachea is unremarkable. Lungs: Unremarkable as visualized. Lymph nodes: Unremarkable. No lymphadenopathy. Bones/joints: Moderate degenerative changes at C5-C6 and C6-C7 with at least a mild to moderate central canal stenosis at these levels. There is no evidence of acute fracture. Soft tissues: Unremarkable. No significant soft tissue swelling. IMPRESSION: No acute findings. Moderate degenerative changes at C5-C6 and C6-C7 with at least a mild to moderate central canal stenosis at these levels. There is no evidence of acute fracture. Dictated and Authenticated by: Margaret Crum MD. Orderin Moises Torres MD
--- NOTE | 2025-05-23 01:07 | DI.VRAD_ITS ---
PROCEDURE INFORMATION: Exam: CT Cervical Spine Without Contrast Exam date and time: 05/23/2025 12:15 AM Age: 59 years old Clinical indication: Pain; Other: Left mid cervical spine tenderness; Additional info: Left mid cervical spine tenderness. Resent spinal block for right thr on Saturday TECHNIQUE: Imaging protocol: Computed tomography of the cervical spine without contrast. COMPARISON: CT NECK W 05/23/2025 12:15 AM FINDINGS: Bones: No acute fracture. Normal alignment. Moderate degenerative changes at C5-C6 and C6-C7 with at least a mild to moderate central canal stenosis at these levels. Bilateral moderate to severe foraminal stenosis at C7-T1. Lungs: Lung apices are normal. Soft tissues: Unremarkable. IMPRESSION: No acute cervical spine fracture. Additional findings as described. Dictated and Authenticated by: Margaret Crum MD. Orderin Moises Torres MD
--- NOTE | 2025-05-23 01:57 | NUR.NOTE ---
assumed care of PT Nursing Note:
== END 2025-05-23 03:16 | disposition home or self-care (01) ==
PROVIDERS: Emergency Provider Emergency Medicine; PCP Family Medicine
DX: M62.838 Other muscle spasm (principal)
CPT/HCPCS: 99285; 99283; 96374; 70491; 72125; 80048; 85025; J3360; J3490